=== PATIENT | male | born 1980 | race Caucasian/White ===

== ENCOUNTER 2021-11-04 17:25 | Emergency (ER) | payer MEDICAID, SELFPAY ==
--- NOTE | ~2021-11-04 | CT_ITS ---
EXAMINATION: CT ABDOMEN AND PELVIS WITHOUT CONTRAST CLINICAL INFORMATION: Severe left-sided flank pain. COMPARISON: None. TECHNIQUE: Multidetector volumetric imaging was performed from the superior aspect of the liver through the pubic symphysis. Sagittal and coronal reformatted images were obtained on the technologist's workstation. This CT examination was performed using dose optimization techniques as appropriate, variously including the following: *Automated exposure control *Adjustment of mA and/or kV according to patient size (this includes techniques or standardized protocols for targeted exams where dose is matched to indication/reason for exam; i.e. extremities or head) *Use of iterative reconstruction technique DLP: 514 mGy-cm FINDINGS: LUNG BASES: No focal consolidation or pleural effusion. Coronary calcifications. LIVER, GALLBLADDER, AND BILIARY TREE: The liver is normal in size, shape, and attenuation. No focal hepatic lesion or biliary ductal dilatation is present. The gallbladder is unremarkable with no evidence of radiopaque gallstones, gallbladder wall thickening, or obvious pericholecystic inflammatory changes. PANCREAS: Unremarkable. SPLEEN: Unremarkable. ADRENAL GLANDS: Unremarkable. KIDNEYS AND URETERS: There is moderate left hydroureteronephrosis with a 0.3 cm calculus in the left UVJ. No other renal calculi are identified. No right hydroureteronephrosis. No discrete focal parenchymal abnormalities, although evaluation of lesions is limited in the absence of intravenous contrast. There is asymmetric left-sided perinephric fat stranding and free fluid, more notable in the anterior pararenal space. BLADDER: Underdistended limiting assessment of wall thickening. GASTROINTESTINAL TRACT: Nonspecific hyperattenuating material layering in the stomach antrum (3:28). The stomach and the small bowel are nondilated. Normal appendix. Colonic diverticulosis without significant pericolonic inflammatory changes. No bowel obstruction. ABDOMINAL WALL: Small bilateral fat-containing inguinal hernias. LYMPH NODES: No lymphadenopathy by size criteria. VASCULAR: Atherosclerotic disease. The abdominal aorta is of normal caliber. PELVIC VISCERA: Unremarkable. OSSEOUS STRUCTURES: No acute or aggressive appearing osseous abnormalities. Mild thoracolumbar spondylosis. CT/CT abdomen pelvis wo con IMPRESSION: There is a 0.3 cm calculus in the left UVJ with moderate left hydronephrosis and asymmetric left perirenal fat stranding/free fluid. Colonic diverticulosis but no evidence of acute diverticulitis.
[2021-11-04 18:20] VITALS: BP 163/93; PULSE 62; RESP 18; TEMP 35.5; O2SAT 99; BMI 27.3
[2021-11-04] MEDS: Ondansetron ODT 4 MG TAB.RAPDIS TRANSLINGU (18:20)
[2021-11-04 19:03] LABS: Basophils Absolute Auto 0.1 X10*3/uL (0.0-0.2); Basophils Percent Auto 0.3 % (0-2); Hematocrit 43.8 % (42.0-52.0); Hemoglobin 14.6 g/dl (14.0-18.0); Imm Gran Pct Auto 0.5 % (0.0-0.4); Lymphocytes Absolute Auto 1.3 X10*3/uL (1.2-4.9); Lymphocytes Percent Auto 6.3 % (20-40); MANUAL DIFF FLAG SCAN; Mean Corpuscular HGB Conc 33.3 g/dl (31.0-36.0); Mean Corpuscular Hemoglobin 28.6 pg (27.0-33.0); Mean Corpuscular Volume 85.7 fL (80.0-98.0); Mean Platelet Volume 9.8 fL (9.4-12.4); Monocytes Absolute Auto 0.5 X10*3/uL (0.1-1.2); Monocytes Percent Auto 2.5 % (2-11); Neutrophils Absolute Auto 18.7 x10*3/uL (2.0-8.3); Neutrophils Percent Auto 90.4 % (45-73); Platelet Count 333 X10*3/uL (160-400); Red Blood Count 5.11 X10*6/uL (4.60-5.80); Red Cell Distribution Width 13.3 % (11.0-16.0); SCAN SMEAR FLAG 1; White Blood Count 20.7 X10*3/uL (4.8-10.8)
[2021-11-04 19:16] LABS: Anion Gap 14 (12-20); Blood Urea Nitrogen 7 mg/dL (9-16); Calcium 9.5 mg/dL (8.4-10.2); Carbon Dioxide 25 mmol/L (22-29); Chloride 103 mmol/L (96-108); Creatinine Clr Calc Pharmacy 84.8; Estimated Glomerular Filt Rate > 60; Glucose Random 150 mg/dL (60-115); Potassium 3.9 mmol/L (3.3-5.1); Sodium 138 mmol/L (135-145)
[2021-11-04 19:32] LABS: SLIDE REVIEW VERIFIED
[2021-11-04 21:42] LABS: Appearance Urine CLOUDY; Color Urine YELLOW; Glucose Urine UA NEG (NEG); Leukocyte Esterase Urine NEG (NEG); Nitrite Urine NEG (NEG); Specific Gravity - Urine >= 1.030 (1.005-1.025); UACC Culture Trigger NO; Urine Blood 2+ (NEG); Urine Ketones NEG (NEG); Urine Protein TRACE MG/DL (NEG-TRACE)
[2021-11-04 21:51] LABS: Bacteria Urine 1+ /LPF; WBC Urine 0 /HPF (0-4)
[2021-11-04 21:52] LABS: Amorphous Sediment Urine 1+ /LPF; RBC Urine 0-2 /HPF (0)
--- NOTE | 2021-11-04 22:41 | PC.NURSE ---
pt reports urinating at this time, having a lot of blood and then immediate pain relief. patient in no obvious distress, appears greatly improved. diaphoresis resolved
[2021-11-04 22:43] VITALS: BP 143/100; PULSE 86; RESP 18; O2SAT 98
[2021-11-04 23:41] VITALS: BP 138/90; PULSE 87; RESP 18; TEMP 37.4; O2SAT 96
[2021-11-05] VITALS: BP 146/91; PULSE 94; RESP 16; O2SAT 95
--- NOTE | 2021-11-05 00:02 | ED_ITS ---
HPI - Abdominal Pain General Chief Complaint: General Medical Stated Complaint: left lower back and abd pain Time Seen by Provider: 11/04/21 21:04 Source: patient Mode of arrival: ambulatory Limitations: no limitations History of Present Illness MD elicited complaint: abdominal pain Onset (ago): hour(s) (this afternoon) Pain Consistency: now resolved Location: L flank Severity: severe Quality: stabbing Radiation: LLQ Migration to: no migration Exacerbating factors: nothing Relieving factors: nothing Associated symptoms: nausea, vomiting, chills and hematuria Related Data Previous Rx's Medication Instructions Recorded levofloxacin 500 mg tablet 500 mg PO DAILY 6 Days #6 tab 11/05/21 Allergies Allergy/AdvReac Type Severity Reaction Status Date / Time Unable to Assess Allergy Unverified 11/04/21 21:05 Review of Systems Review of Systems Constitutional : No Weight loss, No Fever, No Chills ENT/Mouth : No sore throat, No Rhinorrhea Eyes: No Swelling, No Redness Cardiovascular : No Chest Pain, No SOB, NoEdema Respiratory : No Cough, No Sputum, No Wheezing Gastrointestinal : Positive Nausea, Positive Vomiting, no Diarrhea, positive abdominal Pain, No Hematochezia, No Melena Genitourinary : No Dysuria, pos Urinary Frequency, pos Hematuria, No Urgency Musculoskeletal : No joint pain, No Myalgias, No Joint Swelling Skin : No Skin Lesions, No rash Neuro : No Weakness, No Numbness, No Dizziness, No Headache Psych : No Anxiety/Panic, No Depression Heme/Lymph: No Bruising, No Lymphadenopathy Endocrine : No Polyuria, No Polydipsia All other systems reviewed and are negative. [facility] Past Medical History Attestation statement: The following information was validated with the patient. Medical History Angina at rest CAD (coronary artery disease) HTN (hypertension) Surgical History H/O heart artery stent Social History Social History (Updated 11/05/21 @ 00:03 by Sarina Friend DO) Patient Tobacco Use Status: Current everyday Tobacco user Physical Exam ED Vital Signs: Vital Signs - 24 hr 11/04/21 18:20 11/04/21 22:43 11/04/21 23:41 Temperature 96 F L 99.3 F Pulse Rate 62 86 87 Respiratory Rate 18 18 18 Blood Pressure 163/93 H 143/100 H 138/90 H Pulse Oximetry 99 98 96 11/05/21 00:00 Temperature Pulse Rate 94 Respiratory Rate 16 Blood Pressure 146/91 H Pulse Oximetry 95 BMI result Body Mass Index 27.3 Appearance: Alert. Oriented X3. No acute distress. I saw the patient after he already passed the stone so he looks amazing but reports from triage is that he was pale, diaphoretic and writhing in pain Eyes: Pupils equal, round and reactive to light. ENT: Pharynx normal. Neck: Normal inspection. Neck supple. CVS: Normal heart rate and rhythm. Pulses normal. Respiratory: No respiratory distress. Breath sounds normal. Abdomen: Soft and non-tender. Skin: Skin warm and dry. pale skin color - states it is his baseline. Extremities: No lower extremity edema. No calf ttp Neuro: Oriented X 3. No motor deficit. No sensory deficit. Course Course Course Narrative: WBC still fiordaliza likely reactive but given recent stone passage will start on levofloxacin - afebrile, no tachycardia MDM - Abdominal Pain MDM Narrative Medical decision making narrative: 41 yo male with hx of HTN, CAD s/p PCI with stent, presented with severe L sided flank pain radiating to his groin with hematuria. I saw him after he notes his pain resolved and he thinks he passed something in his urine. He had an elevated WBC of 20k but no UTI and CT scan showed L sided UVJ 3mm stone obstructing. On my interview he has no pain now and states he feels much better and is in 0/10 pain. I suspect he passed the stone. At this time will repeat CBC and see where he is at. Given perinephric stranding may benefit from some oral antibiotics at home Lab Data Result diagrams: 11/05/21 00:10 11/04/21 18:57 Labs: Lab Results 11/04/21 11/04/21 11/04/21 Range/Units 18:57 18:57 21:36 WBC 20.7 H (4.8-10.8) X10*3/uL RBC 5.11 (4.60-5.80) X10*6/uL Hgb 14.6 (14.0-18.0) g/dl Hct 43.8 (42.0-52.0) % MCV 85.7 (80.0-98.0) fL MCH 28.6 (27.0-33.0) pg MCHC 33.3 (31.0-36.0) g/dl RDW 13.3 (11.0-16.0) % Plt Count 333 (160-400) X10*3/uL MPV 9.8 (9.4-12.4) fL Immature Gran % (Auto) 0.5 H (0.0-0.4) % Neut % (Auto) 90.4 H (45-73) % Lymph % (Auto) 6.3 L (20-40) % [place] % (Auto) 2.5 (2-11) % Eos % (Auto) 0.0 (0-4) % Baso % (Auto) 0.3 (0-2) % Lymph # (Auto) 1.3 (1.2-4.9) X10*3/uL [place] # (Auto) 0.5 (0.1-1.2) X10*3/uL Eos # (Auto) 0.0 (0.0-0.4) X10*3/uL Baso # (Auto) 0.1 (0.0-0.2) X10*3/uL Abs Immat Gran (auto) 0.10 H (0.00-0.03) X10*3/uL Absolute Neuts (auto) 18.7 H (2.0-8.3) x10*3/uL Absolute Nucleated RBC 0.000 (0.0-0.012) X10*3/uL Nucleated RBC % (auto) 0.0 (0.0-0.2) /100WBC Smear Tech's Comments VERIFIED Sodium 138 (135-145) mmol/L Potassium 3.9 (3.3-5.1) mmol/L Chloride 103 (96-108) mmol/L Carbon Dioxide 25 (22-29) mmol/L Anion Gap 14 (12-20) BUN 7 L (9-16) mg/dL Creatinine 1.12 (0.5-1.4) mg/dL Estim Creat Clear Calc 84.8 Estimated GFR > 60 Random Glucose 150 H (60-115) mg/dL Calcium 9.5 (8.4-10.2) mg/dL Urine Color YELLOW Urine Appearance CLOUDY Urine pH 6.0 (5.0-8.0) Ur Specific [place] >= 1.030 H (1.005-1.025) Urine Protein TRACE (NEG-TRACE) MG/DL Urine Glucose (UA) NEG (NEG) MG/DL Urine Ketones NEG (NEG) MG/DL Urine Blood 2+ H (NEG) Urine Nitrite NEG (NEG) Ur Leukocyte Esterase NEG (NEG) Urine RBC 0-2 (0) /HPF Urine WBC 0 (0-4) /HPF Ur Squamous Epith Cells NONE /LPF Amorphous Sediment 1+ /LPF Urine Bacteria 1+ /LPF 11/05/21 Range/Units 00:10 WBC 19.0 H (4.8-10.8) X10*3/uL RBC 5.05 (4.60-5.80) X10*6/uL Hgb 14.5 (14.0-18.0) g/dl Hct 43.1 (42.0-52.0) % MCV 85.3 (80.0-98.0) fL MCH 28.7 (27.0-33.0) pg MCHC 33.6 (31.0-36.0) g/dl RDW 13.6 (11.0-16.0) % Plt Count 310 (160-400) X10*3/uL MPV 9.8 (9.4-12.4) fL Immature Gran % (Auto) 0.3 (0.0-0.4) % Neut % (Auto) 89.6 H (45-73) % Lymph % (Auto) 6.4 L (20-40) % [place] % (Auto) 3.5 (2-11) % Eos % (Auto) 0.0 (0-4) % Baso % (Auto) 0.2 (0-2) % Lymph # (Auto) 1.2 (1.2-4.9) X10*3/uL [place] # (Auto) 0.7 (0.1-1.2) X10*3/uL Eos # (Auto) 0.0 (0.0-0.4) X10*3/uL Baso # (Auto) 0.0 (0.0-0.2) X10*3/uL Abs Immat Gran (auto) 0.06 H (0.00-0.03) X10*3/uL Absolute Neuts (auto) 17.1 H (2.0-8.3) x10*3/uL Absolute Nucleated RBC 0.000 (0.0-0.012) X10*3/uL Nucleated RBC % (auto) 0.0 (0.0-0.2) /100WBC Smear Tech's Comments Sodium (135-145) mmol/L Potassium (3.3-5.1) mmol/L Chloride (96-108) mmol/L Carbon Dioxide (22-29) mmol/L Anion Gap (12-20) BUN (9-16) mg/dL Creatinine (0.5-1.4) mg/dL Estim Creat Clear Calc Estimated GFR Random Glucose (60-115) mg/dL Calcium (8.4-10.2) mg/dL Urine Color Urine Appearance Urine pH (5.0-8.0) Ur Specific [place] (1.005-1.025) Urine Protein (NEG-TRACE) MG/DL Urine Glucose (UA) (NEG) MG/DL Urine Ketones (NEG) MG/DL Urine Blood (NEG) Urine Nitrite (NEG) Ur Leukocyte Esterase (NEG) Urine RBC (0) /HPF Urine WBC (0-4) /HPF Ur Squamous Epith Cells /LPF Amorphous Sediment /LPF Urine Bacteria /LPF Discharge Plan Discharge Clinical Impression: Ureterolithiasis, Leukocytosis Patient Disposition: Home, Self-Care Instructions: Leukocytosis (ED), Ureteral Stones (ED) Additional Instructions: return to ED for any worsening symptoms or concerns the CT scan showed a stone 3mm right at the bladder junction if your pain returns this could mean the stone is still there. Please follow up with your doctor and recheck your kidney function in 2 days. Replace 2 of your pepsis with a bottle of water each day. Monitor yourself for fevers Prescriptions: New levofloxacin 500 mg tablet 500 mg PO DAILY 6 Days Qty: 6 0RF Referrals: Lui Ruiz MD [Physician] - 2 days (if pain returns - UROLOGIST) Stand Alone Forms: Work/School Release
[2021-11-05 00:18] LABS: Basophils Percent Auto 0.2 % (0-2); Hematocrit 43.1 % (42.0-52.0); Hemoglobin 14.5 g/dl (14.0-18.0); Imm Gran Abs Auto 0.06 X10*3/uL (0.00-0.03); Imm Gran Pct Auto 0.3 % (0.0-0.4); Lymphocytes Absolute Auto 1.2 X10*3/uL (1.2-4.9); Lymphocytes Percent Auto 6.4 % (20-40); MANUAL DIFF FLAG NO; Mean Corpuscular HGB Conc 33.6 g/dl (31.0-36.0); Mean Corpuscular Hemoglobin 28.7 pg (27.0-33.0); Mean Corpuscular Volume 85.3 fL (80.0-98.0); Mean Platelet Volume 9.8 fL (9.4-12.4); Monocytes Absolute Auto 0.7 X10*3/uL (0.1-1.2); Monocytes Percent Auto 3.5 % (2-11); Neutrophils Absolute Auto 17.1 x10*3/uL (2.0-8.3); Neutrophils Percent Auto 89.6 % (45-73); Platelet Count 310 X10*3/uL (160-400); Red Blood Count 5.05 X10*6/uL (4.60-5.80); Red Cell Distribution Width 13.6 % (11.0-16.0)
[2021-11-05] MEDS: levoFLOXacin 500 MG TABLET PO (00:29)
== END 2021-11-05 00:47 | disposition home or self-care (01) ==
LOC: HO.ED 11-05 00:45
PROVIDERS: Emergency Provider Emergency Medicine; PCP Internal Medicine
DX: N20.1 Calculus of ureter (principal); M54.50 Low back pain, unspecified; D72.829 Elevated white blood cell count, unspecified; R10.32 Left lower quadrant pain; Z79.899 Other long term (current) drug therapy
CPT/HCPCS: 36415; 74176; 80048; 81001; 85025; 99284

== ENCOUNTER 2024-12-18 07:21 | Inpatient (IN) | payer OTHER, SELFPAY ==
[2024-12-18 07:25] VITALS: BP 154/106; PULSE 64; O2SAT 94
[2024-12-18 07:40] VITALS: BP 151/86; PULSE 72; RESP 18; TEMP 36.9; O2SAT 99
[2024-12-18 07:47] VITALS: BMI 28.8
--- NOTE | 2024-12-18 07:53 | PC.NURSE ---
Patient aware of plan of care for labwork. Is calm and in NAD. Resting with no complaints at this time. Q15 min checks maintained for safety.
[2024-12-18 08:07] LABS: MANUAL DIFF FLAG NO
[2024-12-18 08:16] LABS: Appearance Urine Clear; Color Urine Yellow; Glucose Urine UA Negative (Negative); Leukocyte Esterase Urine Negative (Negative); Nitrite Urine Negative (Negative); UMIC TRIGGER UACC YES; Urine Blood Trace (Negative); Urine Ketones 15 mg/dL (Negative); Urine Protein Negative (Neg-Trace)
[2024-12-18 08:18] LABS: Basophils Absolute Auto 0.1 X10*3/uL (0.0-0.2); Basophils Percent Auto 0.6 % (0-2); Eosinophils Percent Auto 0.2 % (0-4); Hematocrit 40.9 % (42.0-52.0); Hemoglobin 14.3 g/dl (14.0-18.0); Imm Gran Abs Auto 0.07 X10*3/uL (0.00-0.03); Imm Gran Pct Auto 0.6 % (0.0-0.4); Lymphocytes Absolute Auto 1.8 X10*3/uL (1.2-4.9); Lymphocytes Percent Auto 15.1 % (20-40); Mean Corpuscular Hemoglobin 29.2 pg (27.0-33.0); Mean Corpuscular Volume 83.6 fL (80.0-98.0); Mean Platelet Volume 9.6 fL (9.4-12.4); Monocytes Absolute Auto 0.5 X10*3/uL (0.1-1.2); Neutrophils Absolute Auto 9.6 x10*3/uL (2.0-8.3); Neutrophils Percent Auto 79.5 % (45-73); Platelet Count 341 X10*3/uL (160-400); Red Blood Count 4.89 X10*6/uL (4.60-5.80); Red Cell Distribution Width 13.1 % (11.0-16.0); White Blood Count 12.1 X10*3/uL (4.8-10.8)
[2024-12-18 08:18] LABS: Bacteria Urine None Seen (None Seen); Hyaline Casts Urine 0-2 /LPF (0-2); Squamous Epithelial Cell Urine 0-2 /HPF (0-2); WBC Urine 0-5 /HPF (0-5)
[2024-12-18 08:28] LABS: Alanine Aminotransferase 17 U/L (0-40); Albumin Level 4.2 g/dL (3.5-5.0); Alkaline Phosphatase 142 U/L (39-117); Anion Gap 12 (12-20); Aspartate Amino Transferase 27 U/L (5-37); Bilirubin Total 0.4 mg/dL (0.0-1.0); Blood Urea Nitrogen 7 mg/dL (9-16); Carbon Dioxide 28 mmol/L (22-29); Chloride 102 mmol/L (96-108); Creatinine Clr Calc Pharmacy 115.4; Estimated Glomerular Filt Rate > 60; Ethanol < 10 mg/dL; Glucose Random 120 mg/dL (60-115); Potassium 3.4 mmol/L (3.3-5.1); Sodium 139 mmol/L (135-145); Total Protein 6.8 g/dL (6.5-8.0)
[2024-12-18 08:29] LABS: Amphetamine Screen Urine Not Detected (Not Detect); Barbiturates, Urine POSITIVE (Not Detect); Benzodiazepines Screen Urine Not Detected (Not Detect); Buprenorphine Scr Not Detected (Not Detect); Cannabinoid Screen Urine POSITIVE (Not Detect); Cocaine Screen Urine Not Detected (Not Detect); Fentanyl, urine Not Detected (Not Detect); Methadone Screen, Urine Not Detected (Not Detect); Opiate Screen Urine Not Detected (Not Detect); Oxycodone Screen Urine Not Detected (Not Detect); Phencyclidine Screen Urine Not Detected (Not Detect)
--- NOTE | 2024-12-18 08:40 | ED_ITS ---
HPI - Psych General Chief Complaint: Psychiatric Symptoms Stated Complaint: THINKS SOMEONE IS TRYING TO KILL HIM,COOP PER EMS Time Seen by Provider: 12/18/24 07:40 History of Present Illness ED Provider: Romie Mireles MD HPI Narrative: [age] male presents for behavioral health complaints. Patient also has hip pain. ____ [age] male who denies any significant formally diagnosed psychiatric history. 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 He also has a stent so he has CAD he is on aspirin statin and he tells me he thinks he is on Inderal. He does see a PCP no therapist or psychiatrist. Having progressive and worsening paranoid thoughts that people are coming to get him and kill him and ?assess and 8 me ?. Today he felt that he could ?make it quicker and just hang myself?. Denies any illicit drugs he is calm cooperative lives with his parents here in the community does not work actively at this time Related Data Home Medications ?Medication ?Instructions ?Recorded ?Confirmed aspirin 81 mg chewable tablet 1 tab PO DAILY 12/18/24 12/18/24 atorvastatin 80 mg tablet 80 mg PO DAILY 12/18/24 12/18/24 metoprolol succinate 25 mg 25 mg PO DAILY 12/18/24 12/18/24 tablet,extended release 24 hr Allergies Allergy/AdvReac Type Severity Reaction Status Date / Time No Known Allergies Allergy Verified 12/18/24 07:50 [facility] Past Medical History Medical History Angina at rest CAD (coronary artery disease) HTN (hypertension) Surgical History H/O heart artery stent Social History Social History (Updated 11/05/21 @ 00:03 by Teresa Friend DO) Household Members: Family Housing: House Do you presently have visiting nurse or other home services: No Alcohol intake: current Alcohol intake frequency: a few times a month Alcohol type: beer Patient Tobacco Use Status: Current someday Tobacco user Tobacco use type: Cigarette Cigarette Packs Per Day: 1 Cigarettes Per Day: 20.0 Years Smoked: 30 Smoked in Last 30 Days: Yes e-Cigarette/Vaping Use: Never Used Patient Interested in Nicotine Replacement: No Patient Given Instructions on How to Stop Smoking: No Second Hand Smoke Exposure: No Use of substances other than those prescribed or required for medical reasons: Yes Substance Use Type: Marijuana Substance Use Frequency: Occasionally Last Used Substance: Weeks (ago) Currently Displaying Signs/Symptoms of Drug Intoxication Withdrawal: No Any prior treatment program specific to substance use: No Have you been hit, kicked, punched, or otherwise hurt by someone within the past year? If so, by whom?: No Do you feel safe in your current relationship?: No Current Relationship Is there a partner from a previous relationship who is making you feel unsafe now?: No Are you made to feel afraid or neglected: No Advance Directives: No Advance Directives Information Provided: Yes Do you have thoughts of harming others: None Do you have a plan to hurt others: No Plan Recently lost weight without trying: No Nutrition Risks: No Nutritional Risk Poor oral hygiene: No Physical Exam 2 Vital Signs: Vital Signs: Last Vital Signs Temp 98.3 F 12/19/24 08:00 Pulse 90 12/19/24 08:40 Resp 16 12/19/24 08:00 BP 115/71 12/19/24 08:40 Pulse Ox 97 12/19/24 08:00 O2 Del Method Room Air 12/18/24 20:00 BMI result Body Mass Index 28.8 Const: Other: EXAM: Gen: Alert, awake, well appearing, well hydrated. Head: Atraumatic Eyes: Anicteric, Normal conjunctiva. ENT: Moist mucosa, no pallor. ? Neck: Supple. Respiratory: Breathing comfortably, No distress.Clear to auscultation bilaterally, symmetric chest expansion, No wheeze, rales, ronchi. Cardiovascular: Regular rate and rhythm. No murmurs or rub. Well perfused periphery, warm extremities. No edema. ? Abdominal: Soft, no objective distension. No palpable masses or obvious organomegaly. No focal tenderness, no guarding, no rebound tenderness or other peritoneal findings. : No flank tenderness. Neuro: Alert. Gross movement of all extremities intact. ? Vital signs: See flowsheet Psych: Poor dentition, well dressed clean and very cooperative. He does occasionally dark his eyes around and appears paranoid but he makes good eye contact. Positive SI with plan prior to arrival to hang himself. He is actively seeking help and cooperative with this. No auditory or visual hallucinations today or ever in the past. No formal psychiatric diagnosis or psychiatric hospitalization denies illicit drug use. Course Reevaluation(s) Reevaluation #1: 12/18/2024 DR. Ellington's Progress note: Patient will be admitted to voluntarily, will discontinue physician observation. Time: 18:26 Medications Administered Generic Name Dose Route Start Last Admin Trade Name Freq PRN Reason Stop Dose Admin Atorvastatin Calcium 80 mg 12/19/24 09:00 12/19/24 08:40 Atorvastatin Calcium 80 Mg Tablet PO 80 mg DAILY ALIRIO Administration Hydroxyzine HCl 25 mg 12/18/24 18:07 12/19/24 13:12 Hydroxyzine Hcl 25 Mg Tablet PO 25 mg Q6H PRN Administration mild anxiety Metoprolol Succinate 25 mg 12/19/24 09:00 12/19/24 08:40 Metoprolol Succinate Er 25 Mg Tab.Er.24h PO 25 mg DAILY ALIRIO Administration Protocol Olanzapine 5 mg 12/18/24 18:07 12/19/24 08:40 Olanzapine 5 Mg Tablet PO 5 mg TID PRN Administration agitation Trazodone HCl 50 mg 12/18/24 18:07 12/18/24 21:40 Trazodone Hcl 50 Mg Tablet PO 50 mg BEDTIME MRX1 PRN Administration Insomnia Medical Decision Making Lab Data 12/18/24 08:04 12/19/24 07:53 Labs: Lab Results 12/18/24 12/18/24 Range/Units 08:04 08:08 WBC 12.1 H (4.8-10.8) X10*3/uL RBC 4.89 (4.60-5.80) X10*6/uL Hgb 14.3 (14.0-18.0) g/dl Hct 40.9 L (42.0-52.0) % MCV 83.6 (80.0-98.0) fL MCH 29.2 (27.0-33.0) pg MCHC 35.0 (31.0-36.0) g/dl RDW 13.1 (11.0-16.0) % Plt Count 341 (160-400) X10*3/uL MPV 9.6 (9.4-12.4) fL Immature Gran % (Auto) 0.6 H (0.0-0.4) % Neut % (Auto) 79.5 H (45-73) % Lymph % (Auto) 15.1 L (20-40) % [place] % (Auto) 4.0 (2-11) % Eos % (Auto) 0.2 (0-4) % Baso % (Auto) 0.6 (0-2) % Lymph # (Auto) 1.8 (1.2-4.9) X10*3/uL [place] # (Auto) 0.5 (0.1-1.2) X10*3/uL Eos # (Auto) 0.0 (0.0-0.4) X10*3/uL Baso # (Auto) 0.1 (0.0-0.2) X10*3/uL Abs Immat Gran (auto) 0.07 H (0.00-0.03) X10*3/uL Absolute Neuts (auto) 9.6 H (2.0-8.3) x10*3/uL Absolute Nucleated RBC 0.000 (0.0-0.012) X10*3/uL Nucleated RBC % (auto) 0.0 (0.0-0.2) /100WBC Sodium 139 (135-145) mmol/L Potassium 3.4 (3.3-5.1) mmol/L Chloride 102 (96-108) mmol/L Carbon Dioxide 28 (22-29) mmol/L Anion Gap 12 (12-20) BUN 7 L (9-16) mg/dL Creatinine 0.74 (0.5-1.4) mg/dL Estim Creat Clear Calc 115.4 Estimated GFR > 60 Random Glucose 120 H (60-115) mg/dL Calcium 9.0 (8.4-10.2) mg/dL Total Bilirubin 0.4 (0.0-1.0) mg/dL AST 27 (5-37) U/L ALT 17 (0-40) U/L Alkaline Phosphatase 142 H (39-117) U/L Total Protein 6.8 (6.5-8.0) g/dL Albumin 4.2 (3.5-5.0) g/dL Urine Color Yellow Urine Appearance Clear Urine pH 7.0 (5.0-9.0) Ur Specific [place] 1.010 (1.005-1.025) Urine Protein Negative (Neg-Trace) mg/dL Urine Glucose (UA) Negative (Negative) mg/dL Urine Ketones 15 (Negative) mg/dL Urine Blood Trace H (Negative) Urine Nitrite Negative (Negative) Ur Leukocyte Esterase Negative (Negative) Urine RBC 3-5 H (0-2) /HPF Urine WBC 0-5 (0-5) /HPF Ur Squamous Epith Cells 0-2 (0-2) /HPF Urine Bacteria None Seen (None Seen) Hyaline Casts 0-2 (0-2) /LPF Urine Opiates Screen Not Detected (Not Detect) Ur Buprenorphine Scrn Not Detected (Not Detect) ng/mL Ur Oxycodone Screen Not Detected (Not Detect) ng/mL Urine Methadone Screen Not Detected (Not Detect) ng/mL Urine Fentanyl Screen Not Detected (Not Detect) Ur Barbiturates Screen POSITIVE H (Not Detect) Ur Phencyclidine Scrn Not Detected (Not Detect) Ur Amphetamines Screen Not Detected (Not Detect) U Benzodiazepines Scrn Not Detected (Not Detect) Urine Cocaine Screen Not Detected (Not Detect) U Marijuana (THC) Screen POSITIVE H (Not Detect) Ethyl Alcohol < 10 mg/dL Discharge Plan Discharge Clinical Impression: Acute psychosis Patient Disposition: Admitted As Inpatient Interventions: Admission Worksheet (ED) Last Done: 12/18/24 19:06 Discharge Date/Time: 12/18/24 19:37
--- NOTE | 2024-12-18 10:25 | PC.NURSE ---
Patient requesting to leave- Care team eval not yet complete- care team aware- Dr West notified as well. Pt in NAD calm and cooperative.
--- NOTE | 2024-12-18 10:36 | PC.NURSE ---
Pt conversing with other patient in the pod do you have a blade, because if you have a blade why don't you just do me in right now . Pt self-redirected back to chair in front of nurses station
--- NOTE | 2024-12-18 11:28 | PC.NURSE ---
pt making statements such as You know I won't make it if I go out those doors right I won't be making it much longer in life
--- NOTE | 2024-12-18 14:12 | MHC.CARE ---
patient assessed by CARE team, meets [facility], at time of writing he is accepting of this disposition.
[2024-12-18 16:13] VITALS: BP 134/88; PULSE 85; RESP 16; TEMP 36.9; O2SAT 99
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
--- NOTE | 2024-12-18 19:37 | PC.ADMIT ---
Blaine arrived on M5 from [facility] ED Pod. He is alert and oriented x3, I thought I was here for a tic bite I got last week that is making me sick He was cooperative with skin/safety check and skin check is only remarkable for circular red scabbed area below right pectoral area. that is where the tic bit me . He signed a CV in the ED and currently denies SI/HI or any visual or perceptual disturbances. He wanted to attend art group you mean I'll have things to do? so this nurse brought him to the OT room.
[2024-12-18 19:44] VITALS: BMI 28.9
[2024-12-18 20:00] VITALS: BP 134/98; PULSE 84; TEMP 36.9; O2SAT 99
[2024-12-18] MEDS: traZODone HCL 50 MG TABLET PO (21:40)
[2024-12-18] MEDS: hydrOXYzine HCL 25 MG TABLET PO (21:40)
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
[2024-12-19 08:00] VITALS: BP 115/71; PULSE 90; RESP 16; TEMP 36.8; O2SAT 97
[2024-12-19 08:36] LABS: Alanine Aminotransferase 20 U/L (0-40); Albumin Level 4.6 g/dL (3.5-5.0); Alkaline Phosphatase 153 U/L (39-117); Anion Gap 12 (12-20); Aspartate Amino Transferase 30 U/L (5-37); Bilirubin Total 0.2 mg/dL (0.0-1.0); Blood Urea Nitrogen 18 mg/dL (9-16); Calcium 9.6 mg/dL (8.4-10.2); Carbon Dioxide 25 mmol/L (22-29); Chloride 107 mmol/L (96-108); Cholesterol 108 mg/dL (<200); Creatinine Clr Calc Pharmacy 104.4; Estimated Glomerular Filt Rate > 60; Glucose Random 116 mg/dL (60-115); HDL Cholesterol 33 mg/dL (>40); LDL Cholesterol Calculated 50 mg/dL (<100); Potassium 3.4 mmol/L (3.3-5.1); Sodium 141 mmol/L (135-145); Total Protein 7.3 g/dL (6.5-8.0); Triglycerides 128 mg/dL (<150)
[2024-12-19 08:40] VITALS: BP 115/71; PULSE 90
[2024-12-19] MEDS: Atorvastatin Calcium 80 MG TABLET PO (08:40)
[2024-12-19] MEDS: hydrOXYzine HCL 25 MG TABLET PO ×3 (08:40→20:06)
[2024-12-19] MEDS: Metoprolol Succinate ER 25 MG TAB.ER.24H PO (08:40)
[2024-12-19] MEDS: OLANZapine 5 MG TABLET PO ×2 (08:40→20:06)
[2024-12-19 08:44] LABS: Estimated Average Glucose 114 mg/dL; Hemoglobin A1C 147.5422 umol/L; Hemoglobin A1c % 5.6 % (<6.0); Total Hemoglobin (HGBA1C) 3921.0076 umol/L
[2024-12-19 08:53] LABS: TSH reflex Free T4 1.51 uIU/mL (0.32-4.0)
--- NOTE | 2024-12-19 11:11 | HO.PSYADMNOT ---
HPI Date of Service: 12/19/24 Chief Complaint: SI;Psychosis Sources of Information: patient interviewed, chart reviewed and crisis/core team assessment reviewed Additional Sources of Information: Seen 130pm Talked with mom and Jahaira Dozier [employer]- current intense sx for a few weeks, probably triggered by parents health crisis and need to be hospitalized a few weeks ago. Pt was worried he would lose them as they spent 4 days in hospital. They have always been there for pt and he needed to stay alone with great worry and concern. Hx of social anxiety since cardiac stenting-unable to go out, stays at home, non violvent, nice person, isolates in his room, not social HPI Subjective Notes: [place] Warning and Conditional Voluntary Healthcare Proxy: No Guardianship: No Medical Problems Affecting Mental Status: No Narrative: 44 yo male, to ER via ambulance with sx of increasing paranoia and fear that he will be shot and killed in the community. Pt telling family for the past few weeks that he is going to and threatened to hang himself at home. Pt met with tw in the kitchen. He refused to meet in the conference room as- we are near the roof and I am afraid of windows- we may be assassinated. Reports that sx just kicked in and he put himself on lock down. Reports being afraid and references several conspiracy theories. Fears being on the unit as it feels like nursing home, fears he will get shanked, hit with a razor, or harmed, my brain can really twist things . Calls himself a narcissist, with a superman complex who fears everything. 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 Surgical History H/O heart artery stent Narrative: Stented a 90% occluded artery Family History: sister-bipolar Social History: Lives with parents in [place] for the past 6 years 5 siblings- all close No relationship, no kids No work in 6 years Substance History: cannabis-smoking, gummies; alcohol in his 20's, nicotine Trauma History: Parents recent hospitalization, Brother Dereck in 2019 had a frontal lobe tumor-several CVA's post op Diagnostics Vital Signs (24Hr): Vital Signs - 24 hr 12/18/24 16:13 12/18/24 20:00 12/19/24 08:40 Temperature 98.5 F 98.5 F Pulse Rate 85 84 90 Respiratory Rate 16 Blood Pressure 134/88 134/98 H 115/71 Pulse Oximetry 99 99 Oxygen Delivery Method Room Air Room Air BMI result Body Mass Index 28.9 Labs 12/18/24 08:04 12/19/24 07:53 Labs: Laboratory Results - last 48 hr 12/18/24 12/18/24 12/19/24 08:04 08:08 07:53 WBC 12.1 H RBC 4.89 Hgb 14.3 Hct 40.9 L MCV 83.6 MCH 29.2 MCHC 35.0 RDW 13.1 Plt Count 341 MPV 9.6 Immature Gran % (Auto) 0.6 H Neut % (Auto) 79.5 H Lymph % (Auto) 15.1 L Hood % (Auto) 4.0 Eos % (Auto) 0.2 Baso % (Auto) 0.6 Lymph # (Auto) 1.8 Hood # (Auto) 0.5 Eos # (Auto) 0.0 Baso # (Auto) 0.1 Abs Immat Gran (auto) 0.07 H Absolute Neuts (auto) 9.6 H Absolute Nucleated RBC 0.000 Nucleated RBC % (auto) 0.0 Sodium 139 141 Potassium 3.4 3.4 Chloride 102 107 Carbon Dioxide 28 25 Anion Gap 12 12 BUN 7 L 18 H Creatinine 0.74 0.82 Estim Creat Clear Calc 115.4 104.4 Estimated GFR > 60 > 60 Random Glucose 120 H 116 H Estimat Average Glucose 114 Hemoglobin A1c % 5.6 Calcium 9.0 9.6 D Total Bilirubin 0.4 0.2 AST 27 30 ALT 17 20 Alkaline Phosphatase 142 H 153 H Total Protein 6.8 7.3 Albumin 4.2 4.6 Triglycerides 128 Cholesterol 108 LDL Cholesterol, Calc 50 HDL Cholesterol 33 L TSH 1.51 Urine Color Yellow Urine Appearance Clear Urine pH 7.0 Ur Specific [place] 1.010 Urine Protein Negative Urine Glucose (UA) Negative Urine Ketones 15 Urine Blood Trace H Urine Nitrite Negative Ur Leukocyte Esterase Negative Urine RBC 3-5 H Urine WBC 0-5 Ur Squamous Epith Cells 0-2 Urine Bacteria None Seen Hyaline Casts 0-2 Urine Opiates Screen Not Detected Ur Buprenorphine Scrn Not Detected Ur Oxycodone Screen Not Detected Urine Methadone Screen Not Detected Urine Fentanyl Screen Not Detected Ur Barbiturates Screen POSITIVE H Ur Phencyclidine Scrn Not Detected Ur Amphetamines Screen Not Detected U Benzodiazepines Scrn Not Detected Urine Cocaine Screen Not Detected U Marijuana (THC) Screen POSITIVE H Ethyl Alcohol < 10 Meds/Allergies Meds Home Medications ?Medication ?Instructions ?Recorded ?Confirmed ?Type aspirin 81 mg chewable tablet 1 tab PO DAILY 12/18/24 12/18/24 History atorvastatin 80 mg tablet 80 mg PO DAILY 12/18/24 12/18/24 History metoprolol succinate 25 mg 25 mg PO DAILY 12/18/24 12/18/24 History tablet,extended release 24 hr Allergies Allergies Allergy/AdvReac Type Severity Reaction Status Date / Time No Known Allergies Allergy Verified 12/18/24 07:50 Mental Status Exam Mental Status Exam Patient Appearance: Fatigued Patient Orientation: Person, Place, Time and Situation Level of Consciousness: Alert Patient Behavior: Appropriate, Talkative, Cooperative, Suspicious, Distractible and Good Eye Contact Mood Description: Anxious and Apprehensive Affect Description: Anxious and Apprehensive Patient Cognition Impaired: No Ability to Follow Directions: Good Speech Pattern: Spontaneous Speech Memory Description: Intact and Episodic Impaired Hallucinations: None Delusions: Paranoid Ideation and Present Perceptual Disturbances: Depersonalization and Derealization Thought Process: Distracted and Rumination Thought Content: positive for [place] Depressive Symptoms: Increased Anxiety, Insomnia, Difficulty Sleeping and Thoughts of /Suicide Abnormal Motor Activity Signs and Symptoms: Restlessness Judgement: Fair Assessment & Plan Assessment & Plan (1) Acute psychosis: Status: Acute Code(s): F23 - Brief psychotic disorder (2) PTSD (post-traumatic stress disorder): Status: Acute Code(s): F43.10 - Post-traumatic stress disorder, unspecified Plan Admit, CV, 15 minute checks, TDN filed. Collateral Contact Diagnostics as needed Encourage full milieu Pt is willing to take medications. Olanzapine 5 mg bid to begin. Patient educated on: medication risk/benefits and therapeutic strategies Reason for continued inpatient stay Substantial Risk for: rapid decompensation Statement Statement: I have reviewed the history and physical and performed a pertinent examination on my patient. No changes have occurred unless specified. If the History and Physical was not performed prior to admission, the Hospitalist's service will be consulted for completing the admission physical. Time Spent With Patient Time: Total time managing care of this patient today ____ minutes.
[2024-12-19 19:43] VITALS: BP 143/85; PULSE 82; TEMP 37; O2SAT 96
[2024-12-19] MEDS: traZODone HCL 50 MG TABLET PO (20:06)
[2024-12-20] MEDS: OLANZapine 5 MG TABLET PO ×4 (04:49→20:52)
[2024-12-20 08:00] VITALS: BP 154/93; PULSE 69; RESP 18; TEMP 36.2; O2SAT 96
[2024-12-20] MEDS: Atorvastatin Calcium 80 MG TABLET PO (08:29)
[2024-12-20] MEDS: Metoprolol Succinate ER 25 MG TAB.ER.24H PO (08:29)
--- NOTE | 2024-12-20 09:51 | P.PNPSI_ITS ---
Subjective Subjective Date of Service: 12/20/24 Reason For Visit: SI;Psychosis Subjective Notes: Conditional Voluntary and 3 Day (retracted) Healthcare Proxy: No Guardianship: No Medical Problems Affecting Mental Status: No Interim History: Less fearful today. Discussed trying to figure out reality vs unreality. Feels lost, in purgatory, believes she has lived life in an incorrect way. No wanting to . Describes social anxiety, anger, feeling scared of his past. Finds olanzapine helpful and would like to continue Review of Systems Review of Systems Yes all other systems are reviewed and are negative Mental Status Exam Mental Status Exam Patient Appearance: Appropriate Patient Orientation: Person, Place, Time and Situation Level of Consciousness: Alert Patient Behavior: Appropriate, Talkative, Cooperative, Suspicious, Distractible and Good Eye Contact Mood Description: Apprehensive Affect Description: Apprehensive Patient Cognition Impaired: No Ability to Follow Directions: Good Speech Pattern: Spontaneous Speech Memory Description: Intact and Episodic Impaired Hallucinations: None Delusions: Paranoid Ideation and Present Perceptual Disturbances: Depersonalization and Derealization Thought Process: Distracted and Rumination Thought Content: positive for [place] and positive for Circumstantial Depressive Symptoms: Increased Anxiety, Insomnia, Difficulty Sleeping and Thoughts of /Suicide Abnormal Motor Activity Signs and Symptoms: Restlessness Judgement: Fair Diagnostics Vital Signs (24Hr): Vital Signs - 24 hr 12/19/24 19:43 12/20/24 08:00 Temperature 98.6 F 97.1 F Pulse Rate 82 69 Respiratory Rate 18 Blood Pressure 143/85 H 154/93 H Pulse Oximetry 96 96 Oxygen Delivery Method Room Air Room Air BMI result Body Mass Index 28.9 Labs 12/18/24 08:04 12/19/24 07:53 Labs: Laboratory Results - last 48 hr 12/19/24 07:53 Sodium 141 Potassium 3.4 Chloride 107 Carbon Dioxide 25 Anion Gap 12 BUN 18 H Creatinine 0.82 Estim Creat Clear Calc 104.4 Estimated GFR > 60 Random Glucose 116 H Estimat Average Glucose 114 Hemoglobin A1c % 5.6 Calcium 9.6 D Total Bilirubin 0.2 AST 30 ALT 20 Alkaline Phosphatase 153 H Total Protein 7.3 Albumin 4.6 Triglycerides 128 Cholesterol 108 LDL Cholesterol, Calc 50 HDL Cholesterol 33 L TSH 1.51 EKG EKG Comment: WNL 12/20/24 Medications Medications Current Medications Acetaminophen (Acetaminophen 325 Mg Tablet) 650 mg PO Q6H PRN PRN Reason: Headache/Pain, Scale 1-10 Al Hydroxide/Mg Hydroxide (Magnesium Hydrox/Alum Hydrox 30 Ml Oral.Susp) 30 ml PO Q6H PRN PRN Reason: Heartburn/Nausea Atorvastatin Calcium (Atorvastatin Calcium 80 Mg Tablet) 80 mg PO DAILY [facility] Last Admin: 12/20/24 08:29 Dose: 80 mg Hydroxyzine HCl (Hydroxyzine Hcl 25 Mg Tablet) 25 mg PO Q6H PRN PRN Reason: mild anxiety Last Admin: 12/19/24 20:06 Dose: 25 mg Magnesium Hydroxide (Milk Of Magnesia 30 Ml Oral.Susp) 30 ml PO DAILY PRN PRN Reason: Constipation Metoprolol Succinate (Metoprolol Succinate Er 25 Mg Tab.Er.24h) 25 mg PO DAILY [facility]; Protocol Last Admin: 12/20/24 08:29 Dose: 25 mg Nicotine (Nicotine 21 Mg Patch.Td24) 21 mg TRANSDERMA DAILY PRN PRN Reason: smoking cessation Nicotine Polacrilex (Nicotine Polacrilex 2 Mg Gum) 4 mg BUCCAL Q2H PRN PRN Reason: Nicotine Cravings Olanzapine (Olanzapine 5 Mg Tablet) 5 mg PO TID PRN PRN Reason: agitation Last Admin: 12/20/24 04:49 Dose: 5 mg Olanzapine (Olanzapine 5 Mg Tablet) 5 mg PO BID [facility] Last Admin: 12/20/24 08:29 Dose: 5 mg Trazodone HCl (Trazodone Hcl 50 Mg Tablet) 50 mg PO BEDTIME MRX1 PRN PRN Reason: Insomnia Last Admin: 12/19/24 20:06 Dose: 50 mg Allergies Allergies Allergy/AdvReac Type Severity Reaction Status Date / Time No Known Allergies Allergy Verified 12/18/24 07:50 Assessment & Plan Assessment & Plan (1) Acute psychosis: Status: Acute Code(s): F23 - Brief psychotic disorder (2) PTSD (post-traumatic stress disorder): Status: Acute Code(s): F43.10 - Post-traumatic stress disorder, unspecified Plan Admit, CV, 15 minute checks, TDN filed. Collateral Contact Diagnostics as needed Encourage full milieu Pt is willing to take medications. Olanzapine 5 mg bid to begin. 12/20: Less frightened, retracted TDN. Continue regime Reason for continued inpatient stay Substantial Risk for: rapid decompensation Time Spent With Patient Time: Total time managing care of this patient today ____ minutes.
[2024-12-20 20:00] VITALS: BP 140/73; PULSE 83; TEMP 37.2; O2SAT 96
[2024-12-21 07:55] VITALS: BP 157/101; PULSE 87; RESP 18; TEMP 36.4; O2SAT 99
[2024-12-21 08:25] VITALS: BP 140/93
[2024-12-21] MEDS: Metoprolol Succinate ER 25 MG TAB.ER.24H PO (08:25)
[2024-12-21] MEDS: OLANZapine 5 MG TABLET PO ×4 (08:26→23:00)
[2024-12-21] MEDS: Atorvastatin Calcium 80 MG TABLET PO (08:26)
[2024-12-21 08:30] VITALS: BP 140/93
[2024-12-21] MEDS: Nicotine Polacrilex 2 MG GUM 4 MG BUCCAL ×2 (13:13→20:52)
--- NOTE | 2024-12-21 15:37 | P.PNPSI_ITS ---
Subjective Subjective Date of Service: 12/21/24 Reason For Visit: SI;Psychosis Interim History: Active on unit, social with peers. patient reports feeling good today; denies any issues at this time. showered. denies SI/HI/VH/AH. denies any side effects from medications. continue current tx plan. Medication Compliance: Yes Side effects from medications: No Attending Groups: Yes Mental Status Exam Mental Status Exam Patient Appearance: Well Grooomed Patient Orientation: Person, Place, Time and Situation Level of Consciousness: Awake and Alert Patient Behavior: Appropriate and Cooperative Mood Description: Calm Affect Description: Calm Ability to Follow Directions: Good Speech Pattern: Clear and Appropriate Memory Description: Intact Hallucinations: None Delusions: Not Present Thought Process: Intact Thought Content: positive for Intact Diagnostics Vital Signs (24Hr): Vital Signs - 24 hr 12/20/24 20:00 12/21/24 07:55 12/21/24 08:25 Temperature 98.9 F 97.5 F Pulse Rate 83 87 Respiratory Rate 18 Blood Pressure 140/73 H 157/101 H 140/93 H Pulse Oximetry 96 99 Oxygen Delivery Method Room Air Room Air 12/21/24 08:30 Temperature Pulse Rate Respiratory Rate Blood Pressure 140/93 H Pulse Oximetry Oxygen Delivery Method BMI result Body Mass Index 28.9 Labs 12/18/24 08:04 12/19/24 07:53 Medications Medications Current Medications Acetaminophen (Acetaminophen 325 Mg Tablet) 650 mg PO Q6H PRN PRN Reason: Headache/Pain, Scale 1-10 Al Hydroxide/Mg Hydroxide (Magnesium Hydrox/Alum Hydrox 30 Ml Oral.Susp) 30 ml PO Q6H PRN PRN Reason: Heartburn/Nausea Atorvastatin Calcium (Atorvastatin Calcium 80 Mg Tablet) 80 mg PO DAILY [facility] Last Admin: 12/21/24 08:26 Dose: 80 mg Hydroxyzine HCl (Hydroxyzine Hcl 25 Mg Tablet) 25 mg PO Q6H PRN PRN Reason: mild anxiety Last Admin: 12/19/24 20:06 Dose: 25 mg Magnesium Hydroxide (Milk Of Magnesia 30 Ml Oral.Susp) 30 ml PO DAILY PRN PRN Reason: Constipation Metoprolol Succinate (Metoprolol Succinate Er 25 Mg Tab.Er.24h) 25 mg PO DAILY [facility]; Protocol Last Admin: 12/21/24 08:25 Dose: 25 mg Nicotine (Nicotine 21 Mg Patch.Td24) 21 mg TRANSDERMA DAILY PRN PRN Reason: smoking cessation Nicotine Polacrilex (Nicotine Polacrilex 2 Mg Gum) 4 mg BUCCAL Q2H PRN PRN Reason: Nicotine Cravings Last Admin: 12/21/24 13:13 Dose: 4 mg Olanzapine (Olanzapine 5 Mg Tablet) 5 mg PO TID PRN PRN Reason: agitation Last Admin: 12/21/24 10:51 Dose: 5 mg Olanzapine (Olanzapine 5 Mg Tablet) 5 mg PO BID [facility] Last Admin: 12/21/24 08:26 Dose: 5 mg Trazodone HCl (Trazodone Hcl 50 Mg Tablet) 50 mg PO BEDTIME MRX1 PRN PRN Reason: Insomnia Last Admin: 12/19/24 20:06 Dose: 50 mg Allergies Allergies Allergy/AdvReac Type Severity Reaction Status Date / Time No Known Allergies Allergy Verified 12/18/24 07:50 Assessment & Plan Assessment & Plan (1) Acute psychosis: Status: Acute Code(s): F23 - Brief psychotic disorder (2) PTSD (post-traumatic stress disorder): Status: Acute Code(s): F43.10 - Post-traumatic stress disorder, unspecified Plan Admit, CV, 15 minute checks, TDN filed. Collateral Contact Diagnostics as needed Encourage full milieu Pt is willing to take medications. Olanzapine 5 mg bid to begin. 12/20: Less frightened, retracted TDN. Continue regime 12/21: Active on unit, social with peers. patient reports feeling good today; denies any issues at this time. showered. denies SI/HI/VH/AH. denies any side effects from medications. continue current tx plan. Patient educated on: diagnosis, medication risk/benefits and therapeutic strategies Reason for continued inpatient stay Substantial Risk for: med/psych decompensation Time Spent With Patient Time: Total time managing care of this patient today _20___ minutes.
[2024-12-21 19:59] VITALS: BP 141/79; PULSE 99; TEMP 36.9; O2SAT 97
[2024-12-21] MEDS: Acetaminophen 325 MG TABLET 650 MG PO (23:07)
[2024-12-22] MEDS: traZODone HCL 50 MG TABLET PO ×2 (03:18→20:13)
[2024-12-22] MEDS: OLANZapine 5 MG TABLET PO ×5 (03:19→20:13)
[2024-12-22 08:00] VITALS: BP 146/71; PULSE 141; RESP 18; TEMP 35.9; O2SAT 96
[2024-12-22 08:47] VITALS: BP 146/71; PULSE 120
[2024-12-22] MEDS: Metoprolol Succinate ER 25 MG TAB.ER.24H PO (08:47)
[2024-12-22] MEDS: Atorvastatin Calcium 80 MG TABLET PO (08:48)
--- NOTE | 2024-12-22 15:12 | HO.PSYCHPN ---
Subjective Subjective Date of Service: 12/22/24 Reason For Visit: SI;Psychosis Interim History: Active on unit, social with peers. patient reports feeling good today; pt stated, I feel like the zyprexa is helpful . denies SI/HI/VH/AH. continue current tx plan. Medication Compliance: Yes Side effects from medications: No Attending Groups: Yes Mental Status Exam Mental Status Exam Patient Appearance: Well Grooomed Patient Orientation: Person, Place, Time and Situation Level of Consciousness: Awake and Alert Patient Behavior: Appropriate and Cooperative Mood Description: Calm Affect Description: Calm Patient Cognition Impaired: No Ability to Follow Directions: Good Speech Pattern: Clear and Appropriate Memory Description: Intact Hallucinations: None Delusions: Not Present Thought Process: Intact Thought Content: positive for Intact Diagnostics Vital Signs (24Hr): Vital Signs - 24 hr 12/21/24 19:59 12/22/24 08:00 12/22/24 08:47 Temperature 98.5 F 96.7 F L Pulse Rate 99 141 H 120 H Respiratory Rate 18 Blood Pressure 141/79 H 146/71 H 146/71 H Pulse Oximetry 97 96 Oxygen Delivery Method Room Air Room Air BMI result Body Mass Index 28.9 Labs 12/18/24 08:04 12/19/24 07:53 Medications Medications Current Medications Acetaminophen (Acetaminophen 325 Mg Tablet) 650 mg PO Q6H PRN PRN Reason: Headache/Pain, Scale 1-10 Last Admin: 12/21/24 23:07 Dose: 650 mg Al Hydroxide/Mg Hydroxide (Magnesium Hydrox/Alum Hydrox 30 Ml Oral.Susp) 30 ml PO Q6H PRN PRN Reason: Heartburn/Nausea Atorvastatin Calcium (Atorvastatin Calcium 80 Mg Tablet) 80 mg PO DAILY [facility] Last Admin: 12/22/24 08:48 Dose: 80 mg Hydroxyzine HCl (Hydroxyzine Hcl 25 Mg Tablet) 25 mg PO Q6H PRN PRN Reason: mild anxiety Last Admin: 12/19/24 20:06 Dose: 25 mg Magnesium Hydroxide (Milk Of Magnesia 30 Ml Oral.Susp) 30 ml PO DAILY PRN PRN Reason: Constipation Metoprolol Succinate (Metoprolol Succinate Er 25 Mg Tab.Er.24h) 25 mg PO DAILY [facility]; Protocol Last Admin: 12/22/24 08:47 Dose: 25 mg Nicotine (Nicotine 21 Mg Patch.Td24) 21 mg TRANSDERMA DAILY PRN PRN Reason: smoking cessation Nicotine Polacrilex (Nicotine Polacrilex 2 Mg Gum) 4 mg BUCCAL Q2H PRN PRN Reason: Nicotine Cravings Last Admin: 12/21/24 20:52 Dose: 4 mg Olanzapine (Olanzapine 5 Mg Tablet) 5 mg PO TID PRN PRN Reason: agitation Last Admin: 12/22/24 14:34 Dose: 5 mg Olanzapine (Olanzapine 5 Mg Tablet) 5 mg PO BID [facility] Last Admin: 12/22/24 08:47 Dose: 5 mg Trazodone HCl (Trazodone Hcl 50 Mg Tablet) 50 mg PO BEDTIME MRX1 PRN PRN Reason: Insomnia Last Admin: 12/22/24 03:18 Dose: 50 mg Allergies Allergies Allergy/AdvReac Type Severity Reaction Status Date / Time No Known Allergies Allergy Verified 12/18/24 07:50 Assessment & Plan Assessment & Plan (1) Acute psychosis: Status: Acute Code(s): F23 - Brief psychotic disorder (2) PTSD (post-traumatic stress disorder): Status: Acute Code(s): F43.10 - Post-traumatic stress disorder, unspecified Plan Admit, CV, 15 minute checks, TDN filed. Collateral Contact Diagnostics as needed Encourage full milieu Pt is willing to take medications. Olanzapine 5 mg bid to begin. 12/20: Less frightened, retracted TDN. Continue regime 12/21: Active on unit, social with peers. patient reports feeling good today; denies any issues at this time. showered. denies SI/HI/VH/AH. denies any side effects from medications. continue current tx plan. 12/22: continue current tx plan. Patient educated on: diagnosis, medication risk/benefits and therapeutic strategies Reason for continued inpatient stay Substantial Risk for: med/psych decompensation Time Spent With Patient Time: Total time managing care of this patient today _20___ minutes.
[2024-12-22 19:44] VITALS: BP 134/82; PULSE 89; TEMP 36.9; O2SAT 99
[2024-12-23 08:18] VITALS: BP 145/91; PULSE 121; RESP 16; TEMP 36.4; O2SAT 98
[2024-12-23] MEDS: Metoprolol Succinate ER 25 MG TAB.ER.24H PO (08:26)
[2024-12-23] MEDS: Atorvastatin Calcium 80 MG TABLET PO (08:26)
[2024-12-23] MEDS: OLANZapine 5 MG TABLET PO ×3 (08:26→16:25)
--- NOTE | 2024-12-23 16:19 | HO.PSYCHPN ---
Subjective Subjective Date of Service: 12/23/24 Reason For Visit: SI;Psychosis Interim History: patient reports feeling increased anxiety and intrusive thoughts today; pt stated, I'm over thinking that someone is going to stab me with throwing knifes . denies SI/HI/VH/AH. discussed increasing Zyprexa dose; pt agreed. Zyprexa increased to 5mg PO daily and 10mg PO bedtime. Medication Compliance: Yes Side effects from medications: No Attending Groups: Yes Mental Status Exam Mental Status Exam Patient Appearance: Well Grooomed Patient Orientation: Person, Place, Time and Situation Level of Consciousness: Awake and Alert Patient Behavior: Appropriate and Cooperative Mood Description: Anxious Affect Description: Anxious Patient Cognition Impaired: No Ability to Follow Directions: Good Speech Pattern: Clear and Appropriate Memory Description: Intact Hallucinations: None Delusions: Paranoid Ideation Thought Process: Intact Thought Content: positive for Intact Diagnostics Vital Signs (24Hr): Vital Signs - 24 hr 12/22/24 19:44 12/23/24 08:18 Temperature 98.4 F 97.5 F Pulse Rate 89 121 H Respiratory Rate 16 Blood Pressure 134/82 145/91 H Pulse Oximetry 99 98 Oxygen Delivery Method Room Air Room Air BMI result Body Mass Index 28.9 Labs 12/18/24 08:04 12/19/24 07:53 Medications Medications Current Medications Acetaminophen (Acetaminophen 325 Mg Tablet) 650 mg PO Q6H PRN PRN Reason: Headache/Pain, Scale 1-10 Last Admin: 12/21/24 23:07 Dose: 650 mg Al Hydroxide/Mg Hydroxide (Magnesium Hydrox/Alum Hydrox 30 Ml Oral.Susp) 30 ml PO Q6H PRN PRN Reason: Heartburn/Nausea Atorvastatin Calcium (Atorvastatin Calcium 80 Mg Tablet) 80 mg PO DAILY [facility] Last Admin: 12/23/24 08:26 Dose: 80 mg Hydroxyzine HCl (Hydroxyzine Hcl 25 Mg Tablet) 25 mg PO Q6H PRN PRN Reason: mild anxiety Last Admin: 12/19/24 20:06 Dose: 25 mg Magnesium Hydroxide (Milk Of Magnesia 30 Ml Oral.Susp) 30 ml PO DAILY PRN PRN Reason: Constipation Metoprolol Succinate (Metoprolol Succinate Er 25 Mg Tab.Er.24h) 25 mg PO DAILY [facility]; Protocol Last Admin: 12/23/24 08:26 Dose: 25 mg Nicotine (Nicotine 21 Mg Patch.Td24) 21 mg TRANSDERMA DAILY PRN PRN Reason: smoking cessation Nicotine Polacrilex (Nicotine Polacrilex 2 Mg Gum) 4 mg BUCCAL Q2H PRN PRN Reason: Nicotine Cravings Last Admin: 12/21/24 20:52 Dose: 4 mg Olanzapine (Olanzapine 5 Mg Tablet) 5 mg PO TID PRN PRN Reason: agitation Last Admin: 12/23/24 10:31 Dose: 5 mg Olanzapine (Olanzapine 5 Mg Tablet) 5 mg PO BID [facility] Last Admin: 12/23/24 08:26 Dose: 5 mg Trazodone HCl (Trazodone Hcl 50 Mg Tablet) 50 mg PO BEDTIME MRX1 PRN PRN Reason: Insomnia Last Admin: 12/22/24 20:13 Dose: 50 mg Allergies Allergies Allergy/AdvReac Type Severity Reaction Status Date / Time No Known Allergies Allergy Verified 12/18/24 07:50 Assessment & Plan Assessment & Plan (1) Acute psychosis: Status: Acute Code(s): F23 - Brief psychotic disorder (2) PTSD (post-traumatic stress disorder): Status: Acute Code(s): F43.10 - Post-traumatic stress disorder, unspecified Plan Admit, CV, 15 minute checks, TDN filed. Collateral Contact Diagnostics as needed Encourage full milieu Pt is willing to take medications. Olanzapine 5 mg bid to begin. 12/20: Less frightened, retracted TDN. Continue regime 12/21: Active on unit, social with peers. patient reports feeling good today; denies any issues at this time. showered. denies SI/HI/VH/AH. denies any side effects from medications. continue current tx plan. 12/22: continue current tx plan. 12/23: Zyprexa increased to 5mg PO daily and 10mg PO bedtime. Patient educated on: diagnosis, medication risk/benefits and therapeutic strategies Reason for continued inpatient stay Substantial Risk for: med/psych decompensation Time Spent With Patient Time: Total time managing care of this patient today _20___ minutes.
[2024-12-23 19:59] VITALS: BP 134/85; PULSE 110; RESP 16; TEMP 36.5; O2SAT 97
[2024-12-23] MEDS: Milk of Magnesia 30 ML ORAL.SUSP PO (20:18)
[2024-12-23] MEDS: OLANZapine 10 MG TABLET PO (20:18)
[2024-12-24 07:41] VITALS: BP 121/82; PULSE 114; RESP 16; TEMP 37.3; O2SAT 98
[2024-12-24] MEDS: OLANZapine 5 MG TABLET PO ×2 (08:00→16:19)
[2024-12-24] MEDS: Atorvastatin Calcium 80 MG TABLET PO (08:00)
[2024-12-24] MEDS: Metoprolol Succinate ER 25 MG TAB.ER.24H PO (08:00)
[2024-12-24] MEDS: Magnesium Hydrox/Alum Hydrox 30 ML ORAL.SUSP PO (08:07)
[2024-12-24] MEDS: polyethylene glycoL 3350 17 GM POWD.PACK PO (15:02)
[2024-12-24] MEDS: Docusate Sodium 100 MG CAPSULE PO ×2 (15:02→20:52)
--- NOTE | 2024-12-24 16:40 | P.PNPSI_ITS ---
Subjective Subjective Date of Service: 12/24/24 Reason For Visit: SI;Psychosis Interim History: happy with olanzapine effects. some concern about constipation. agreed to start colace 100 BID and miralax 17 gm daily PRN also ordered. google glasses? Mental Status Exam Mental Status Exam Patient Appearance: Well Grooomed Patient Orientation: Person, Place, Time and Situation Level of Consciousness: Awake and Alert Patient Behavior: Appropriate and Cooperative Mood Description: Anxious Affect Description: Anxious Patient Cognition Impaired: No Ability to Follow Directions: Good Speech Pattern: Clear and Appropriate Memory Description: Intact Hallucinations: None Delusions: Paranoid Ideation Thought Process: Intact Thought Content: positive for Intact Diagnostics Vital Signs (24Hr): Vital Signs - 24 hr 12/23/24 19:59 12/24/24 07:41 Temperature 97.7 F 99.1 F Pulse Rate 110 H 114 H Respiratory Rate 16 16 Blood Pressure 134/85 121/82 Pulse Oximetry 97 98 Oxygen Delivery Method Room Air BMI result Body Mass Index 28.9 Labs 12/18/24 08:04 12/19/24 07:53 Medications Medications Current Medications Acetaminophen (Acetaminophen 325 Mg Tablet) 650 mg PO Q6H PRN PRN Reason: Headache/Pain, Scale 1-10 Last Admin: 12/21/24 23:07 Dose: 650 mg Al Hydroxide/Mg Hydroxide (Magnesium Hydrox/Alum Hydrox 30 Ml Oral.Susp) 30 ml PO Q6H PRN PRN Reason: Heartburn/Nausea Last Admin: 12/24/24 08:07 Dose: 30 ml Atorvastatin Calcium (Atorvastatin Calcium 80 Mg Tablet) 80 mg PO DAILY [facility] Last Admin: 12/24/24 08:00 Dose: 80 mg Docusate Sodium (Docusate Sodium 100 Mg Capsule) 100 mg PO BID [facility] Last Admin: 12/24/24 15:02 Dose: 100 mg Hydroxyzine HCl (Hydroxyzine Hcl 25 Mg Tablet) 25 mg PO Q6H PRN PRN Reason: mild anxiety Last Admin: 12/19/24 20:06 Dose: 25 mg Magnesium Hydroxide (Milk Of Magnesia 30 Ml Oral.Susp) 30 ml PO DAILY PRN PRN Reason: Constipation Last Admin: 12/23/24 20:18 Dose: 30 ml Metoprolol Succinate (Metoprolol Succinate Er 25 Mg Tab.Er.24h) 25 mg PO DAILY [facility]; Protocol Last Admin: 12/24/24 08:00 Dose: 25 mg Nicotine (Nicotine 21 Mg Patch.Td24) 21 mg TRANSDERMA DAILY PRN PRN Reason: smoking cessation Nicotine Polacrilex (Nicotine Polacrilex 2 Mg Gum) 4 mg BUCCAL Q2H PRN PRN Reason: Nicotine Cravings Last Admin: 12/21/24 20:52 Dose: 4 mg Olanzapine (Olanzapine 5 Mg Tablet) 5 mg PO TID PRN PRN Reason: agitation Last Admin: 12/24/24 16:19 Dose: 5 mg Olanzapine (Olanzapine 10 Mg Tablet) 10 mg PO BEDTIME [facility] Last Admin: 12/23/24 20:18 Dose: 10 mg Olanzapine (Olanzapine 5 Mg Tablet) 5 mg PO DAILY [facility] Last Admin: 12/24/24 08:00 Dose: 5 mg Polyethylene Glycol (Polyethylene Glycol 3350 17 Gm Powd.Pack) 17 gm PO DAILY PRN PRN Reason: Constipation Last Admin: 12/24/24 15:02 Dose: 17 gm Trazodone HCl (Trazodone Hcl 50 Mg Tablet) 50 mg PO BEDTIME MRX1 PRN PRN Reason: Insomnia Last Admin: 12/22/24 20:13 Dose: 50 mg Allergies Allergies Allergy/AdvReac Type Severity Reaction Status Date / Time No Known Allergies Allergy Verified 12/18/24 07:50 Assessment & Plan Assessment & Plan (1) Acute psychosis: Status: Acute Code(s): F23 - Brief psychotic disorder (2) PTSD (post-traumatic stress disorder): Status: Acute Code(s): F43.10 - Post-traumatic stress disorder, unspecified Plan Admit, CV, 15 minute checks, TDN filed. Collateral Contact Diagnostics as needed Encourage full milieu Pt is willing to take medications. Olanzapine 5 mg bid to begin. 12/20: Less frightened, retracted TDN. Continue regime 12/21: Active on unit, social with peers. patient reports feeling good today; denies any issues at this time. showered. denies SI/HI/VH/AH. denies any side effects from medications. continue current tx plan. 12/22: continue current tx plan. 12/23: Zyprexa increased to 5mg PO daily and 10mg PO bedtime. 12/24: feeling positive about effects of olanzapine on his thoughts. constipation has become a problem. start colace 100 BID and miralax 17 gm daily PRN. continue current olanzapine orders. Reason for continued inpatient stay Substantial Risk for: inability to function and rapid decompensation Time Spent With Patient Time: Total time managing care of this patient today __25__ minutes.
[2024-12-24 19:54] VITALS: BP 122/76; PULSE 123; RESP 18; TEMP 36.8; O2SAT 97
[2024-12-24] MEDS: OLANZapine 10 MG TABLET PO (20:52)
[2024-12-25 08:22] VITALS: BP 138/100; PULSE 120; RESP 16; TEMP 36.4; O2SAT 98
[2024-12-25 08:33] VITALS: BP 149/84; PULSE 102
[2024-12-25] MEDS: Docusate Sodium 100 MG CAPSULE PO ×2 (08:45→20:30)
[2024-12-25] MEDS: Atorvastatin Calcium 80 MG TABLET PO (08:45)
[2024-12-25] MEDS: OLANZapine 5 MG TABLET PO (08:45)
[2024-12-25] MEDS: Metoprolol Succinate ER 25 MG TAB.ER.24H PO (08:45)
--- NOTE | 2024-12-25 12:18 | PC.NURSE ---
Magdy mother Carlie called, (completed CRISTINA in chart) for upate on pt. Carlie was informed that Blaine is taking all his medications and reports a decrease in paranoia symptoms and also reports improved sleep. Carlie states that Blaine is a master at leading people to believe he is fine . Carlie reports that a few days ago Blaine called her to say maybe they'll just take an arm and not kill me . She also reports Blaine made phone calls to several family members over last few days just calling to say goodbye . Carlie adds that 22yrs ago the pt received a compression fracture at the base of his skull 22years ago and only had 1 MRI . She feels Blaine would benefit from another MRI. Carlie goes on to state that in September of this year she and her became ill and were both in the hospital and Blaine was left home alone which never happens . When I was released from the hospital 4 days later and came home he was very withdrawn and paranoid, alot more some than before . She reports he seldom leaves home anymore and engages less with his 2 best friends. His brother has had multiple brain tumors and several stroke and it really seemed to affect him . Pt is requesting a call from the doctor to further discuss treatment. Provider JEFFERSON and ammonia refrigeration worker ME notified via tiger text
[2024-12-25] MEDS: polyethylene glycoL 3350 17 GM POWD.PACK PO (17:53)
[2024-12-25 19:41] VITALS: BP 146/89; PULSE 97; TEMP 37.1; O2SAT 98
[2024-12-25] MEDS: OLANZapine 10 MG TABLET PO (20:30)
[2024-12-26 07:00] VITALS: BMI 27.1
[2024-12-26] MEDS: Metoprolol Succinate ER 25 MG TAB.ER.24H PO (08:10)
[2024-12-26] MEDS: OLANZapine 5 MG TABLET PO ×2 (08:10→18:24)
[2024-12-26] MEDS: Atorvastatin Calcium 80 MG TABLET PO (08:10)
[2024-12-26] MEDS: Docusate Sodium 100 MG CAPSULE PO ×2 (08:10→21:13)
[2024-12-26 08:11] VITALS: BP 124/78; PULSE 103; RESP 18; TEMP 36.8; O2SAT 97
[2024-12-26] MEDS: Milk of Magnesia 30 ML ORAL.SUSP PO (14:03)
--- NOTE | 2024-12-26 15:40 | HO.PSYCHPN ---
Subjective Subjective Date of Service: 12/26/24 Reason For Visit: SI;Psychosis Subjective Notes: Conditional Voluntary Interim History: Active on unit. Patient reports feeling better today; pt stated, I feel like the increase in medication helped. I slept great last night . pt reports he is not having intrusive thoughts today. denies SI/HI/VH/AH. Pt reports he would like to start discussing discharge with nursing home social worker and T/W. nursing home social worker aware. Medication Compliance: Yes Side effects from medications: No Attending Groups: Yes Mental Status Exam Mental Status Exam Patient Appearance: Well Grooomed Patient Orientation: Person, Place, Time and Situation Level of Consciousness: Awake and Alert Patient Behavior: Appropriate, Cooperative and Good Eye Contact Mood Description: Calm Affect Description: Calm Ability to Follow Directions: Good Speech Pattern: Clear and Appropriate Memory Description: Intact Hallucinations: None Delusions: Not Present Thought Process: Intact Thought Content: positive for Intact Diagnostics Vital Signs (24Hr): Vital Signs - 24 hr 12/25/24 19:41 12/26/24 08:11 Temperature 98.7 F 98.2 F Pulse Rate 97 103 H Respiratory Rate 18 Blood Pressure 146/89 H 124/78 Pulse Oximetry 98 97 Oxygen Delivery Method Room Air Room Air BMI result Body Mass Index 27.1 Labs 12/18/24 08:04 12/19/24 07:53 Medications Medications Current Medications Acetaminophen (Acetaminophen 325 Mg Tablet) 650 mg PO Q6H PRN PRN Reason: Headache/Pain, Scale 1-10 Last Admin: 12/21/24 23:07 Dose: 650 mg Al Hydroxide/Mg Hydroxide (Magnesium Hydrox/Alum Hydrox 30 Ml Oral.Susp) 30 ml PO Q6H PRN PRN Reason: Heartburn/Nausea Last Admin: 12/24/24 08:07 Dose: 30 ml Atorvastatin Calcium (Atorvastatin Calcium 80 Mg Tablet) 80 mg PO DAILY [facility] Last Admin: 12/26/24 08:10 Dose: 80 mg Docusate Sodium (Docusate Sodium 100 Mg Capsule) 100 mg PO BID [facility] Last Admin: 12/26/24 08:10 Dose: 100 mg Hydroxyzine HCl (Hydroxyzine Hcl 25 Mg Tablet) 25 mg PO Q6H PRN PRN Reason: mild anxiety Last Admin: 12/19/24 20:06 Dose: 25 mg Magnesium Hydroxide (Milk Of Magnesia 30 Ml Oral.Susp) 30 ml PO DAILY PRN PRN Reason: Constipation Last Admin: 12/26/24 14:03 Dose: 30 ml Metoprolol Succinate (Metoprolol Succinate Er 25 Mg Tab.Er.24h) 25 mg PO DAILY [facility]; Protocol Last Admin: 12/26/24 08:10 Dose: 25 mg Nicotine (Nicotine 21 Mg Patch.Td24) 21 mg TRANSDERMA DAILY PRN PRN Reason: smoking cessation Nicotine Polacrilex (Nicotine Polacrilex 2 Mg Gum) 4 mg BUCCAL Q2H PRN PRN Reason: Nicotine Cravings Last Admin: 12/21/24 20:52 Dose: 4 mg Olanzapine (Olanzapine 5 Mg Tablet) 5 mg PO TID PRN PRN Reason: agitation Last Admin: 12/24/24 16:19 Dose: 5 mg Olanzapine (Olanzapine 10 Mg Tablet) 10 mg PO BEDTIME [facility] Last Admin: 12/25/24 20:30 Dose: 10 mg Olanzapine (Olanzapine 5 Mg Tablet) 5 mg PO DAILY [facility] Last Admin: 12/26/24 08:10 Dose: 5 mg Polyethylene Glycol (Polyethylene Glycol 3350 17 Gm Powd.Pack) 17 gm PO DAILY PRN PRN Reason: Constipation Last Admin: 12/25/24 17:53 Dose: 17 gm Trazodone HCl (Trazodone Hcl 50 Mg Tablet) 50 mg PO BEDTIME MRX1 PRN PRN Reason: Insomnia Last Admin: 12/22/24 20:13 Dose: 50 mg Allergies Allergies Allergy/AdvReac Type Severity Reaction Status Date / Time No Known Allergies Allergy Verified 12/18/24 07:50 Assessment & Plan Assessment & Plan (1) Acute psychosis: Status: Acute Code(s): F23 - Brief psychotic disorder (2) PTSD (post-traumatic stress disorder): Status: Acute Code(s): F43.10 - Post-traumatic stress disorder, unspecified Plan Admit, CV, 15 minute checks, TDN filed. Collateral Contact Diagnostics as needed Encourage full milieu Pt is willing to take medications. Olanzapine 5 mg bid to begin. 12/20: Less frightened, retracted TDN. Continue regime 12/21: Active on unit, social with peers. patient reports feeling good today; denies any issues at this time. showered. denies SI/HI/VH/AH. denies any side effects from medications. continue current tx plan. 12/22: continue current tx plan. 12/23: Zyprexa increased to 5mg PO daily and 10mg PO bedtime. 12/24: feeling positive about effects of olanzapine on his thoughts. constipation has become a problem. start colace 100 BID and miralax 17 gm daily PRN. continue current olanzapine orders. 12/26: Active on unit. Patient reports feeling better today; pt stated, I feel like the increase in medication helped. I slept great last night . pt reports he is not having intrusive thoughts today. denies SI/HI/VH/AH. Pt reports he would like to start discussing discharge with nursing home social worker and T/W. nursing home social worker aware. Patient educated on: diagnosis, medication risk/benefits and therapeutic strategies Reason for continued inpatient stay Substantial Risk for: med/psych decompensation Time Spent With Patient Time: Total time managing care of this patient today _20___ minutes.
[2024-12-26] MEDS: polyethylene glycoL 3350 17 GM POWD.PACK PO (16:10)
[2024-12-26 20:00] VITALS: BP 128/76; PULSE 106; RESP 16; TEMP 36.4; O2SAT 97
[2024-12-26] MEDS: OLANZapine 10 MG TABLET PO (21:13)
[2024-12-27 08:15] VITALS: BP 117/73; PULSE 96; TEMP 37; O2SAT 98
[2024-12-27] MEDS: Metoprolol Succinate ER 25 MG TAB.ER.24H PO (09:08)
[2024-12-27] MEDS: Docusate Sodium 100 MG CAPSULE PO ×2 (09:08→20:40)
[2024-12-27] MEDS: OLANZapine 5 MG TABLET PO (09:08)
[2024-12-27] MEDS: Atorvastatin Calcium 80 MG TABLET PO (09:08)
--- NOTE | 2024-12-27 11:07 | P.PNPSI_ITS ---
Subjective Subjective Date of Service: 12/27/24 Reason For Visit: SI;Psychosis Interim History: Patient reports feeling good ; pt stated, I'm doing well. I'm not having any anxiety and I'm sleeping well . Plan to discharge home on Monday if continues to do well. denies SI/HI/VH/AH. Medication Compliance: Yes Side effects from medications: No Attending Groups: Yes Mental Status Exam Mental Status Exam Patient Appearance: Well Grooomed Patient Orientation: Person, Place, Time and Situation Level of Consciousness: Awake and Alert Patient Behavior: Appropriate, Cooperative and Good Eye Contact Mood Description: Calm Affect Description: Calm Patient Cognition Impaired: No Ability to Follow Directions: Good Speech Pattern: Clear and Appropriate Memory Description: Intact Hallucinations: None Delusions: Not Present Thought Process: Intact Thought Content: positive for Intact Diagnostics Vital Signs (24Hr): Vital Signs - 24 hr 12/26/24 20:00 12/27/24 08:15 Temperature 97.5 F 98.6 F Pulse Rate 106 H 96 Respiratory Rate 16 Blood Pressure 128/76 117/73 Pulse Oximetry 97 98 Oxygen Delivery Method Room Air Room Air BMI result Body Mass Index 27.1 Labs 12/18/24 08:04 12/19/24 07:53 Medications Medications Current Medications Acetaminophen (Acetaminophen 325 Mg Tablet) 650 mg PO Q6H PRN PRN Reason: Headache/Pain, Scale 1-10 Last Admin: 12/21/24 23:07 Dose: 650 mg Al Hydroxide/Mg Hydroxide (Magnesium Hydrox/Alum Hydrox 30 Ml Oral.Susp) 30 ml PO Q6H PRN PRN Reason: Heartburn/Nausea Last Admin: 12/24/24 08:07 Dose: 30 ml Atorvastatin Calcium (Atorvastatin Calcium 80 Mg Tablet) 80 mg PO DAILY [facility] Last Admin: 12/27/24 09:08 Dose: 80 mg Docusate Sodium (Docusate Sodium 100 Mg Capsule) 100 mg PO BID [facility] Last Admin: 12/27/24 09:08 Dose: 100 mg Hydroxyzine HCl (Hydroxyzine Hcl 25 Mg Tablet) 25 mg PO Q6H PRN PRN Reason: mild anxiety Last Admin: 12/19/24 20:06 Dose: 25 mg Magnesium Hydroxide (Milk Of Magnesia 30 Ml Oral.Susp) 30 ml PO DAILY PRN PRN Reason: Constipation Last Admin: 12/26/24 14:03 Dose: 30 ml Metoprolol Succinate (Metoprolol Succinate Er 25 Mg Tab.Er.24h) 25 mg PO DAILY [facility]; Protocol Last Admin: 12/27/24 09:08 Dose: 25 mg Nicotine (Nicotine 21 Mg Patch.Td24) 21 mg TRANSDERMA DAILY PRN PRN Reason: smoking cessation Nicotine Polacrilex (Nicotine Polacrilex 2 Mg Gum) 4 mg BUCCAL Q2H PRN PRN Reason: Nicotine Cravings Last Admin: 12/21/24 20:52 Dose: 4 mg Olanzapine (Olanzapine 5 Mg Tablet) 5 mg PO TID PRN PRN Reason: agitation Last Admin: 12/26/24 18:24 Dose: 5 mg Olanzapine (Olanzapine 10 Mg Tablet) 10 mg PO BEDTIME [facility] Last Admin: 12/26/24 21:13 Dose: 10 mg Olanzapine (Olanzapine 5 Mg Tablet) 5 mg PO DAILY [facility] Last Admin: 12/27/24 09:08 Dose: 5 mg Polyethylene Glycol (Polyethylene Glycol 3350 17 Gm Powd.Pack) 17 gm PO DAILY PRN PRN Reason: Constipation Last Admin: 12/26/24 16:10 Dose: 17 gm Trazodone HCl (Trazodone Hcl 50 Mg Tablet) 50 mg PO BEDTIME MRX1 PRN PRN Reason: Insomnia Last Admin: 12/22/24 20:13 Dose: 50 mg Allergies Allergies Allergy/AdvReac Type Severity Reaction Status Date / Time No Known Allergies Allergy Verified 12/18/24 07:50 Assessment & Plan Assessment & Plan (1) Acute psychosis: Status: Acute Code(s): F23 - Brief psychotic disorder (2) PTSD (post-traumatic stress disorder): Status: Acute Code(s): F43.10 - Post-traumatic stress disorder, unspecified Plan Admit, CV, 15 minute checks, TDN filed. Collateral Contact Diagnostics as needed Encourage full milieu Pt is willing to take medications. Olanzapine 5 mg bid to begin. 12/20: Less frightened, retracted TDN. Continue regime 12/21: Active on unit, social with peers. patient reports feeling good today; denies any issues at this time. showered. denies SI/HI/VH/AH. denies any side effects from medications. continue current tx plan. 12/22: continue current tx plan. 12/23: Zyprexa increased to 5mg PO daily and 10mg PO bedtime. 12/24: feeling positive about effects of olanzapine on his thoughts. constipation has become a problem. start colace 100 BID and miralax 17 gm daily PRN. continue current olanzapine orders. 12/26: Active on unit. Patient reports feeling better today; pt stated, I feel like the increase in medication helped. I slept great last night . pt reports he is not having intrusive thoughts today. denies SI/HI/VH/AH. Pt reports he would like to start discussing discharge with social sciences instructor and T/W. social sciences instructor aware. 12/27: Patient reports feeling good ; pt stated, I'm doing well. I'm not having any anxiety and I'm sleeping well . Plan to discharge home on Monday if continues to do well. denies SI/HI/VH/AH. Patient educated on: diagnosis, medication risk/benefits and therapeutic strategies Reason for continued inpatient stay Substantial Risk for: med/psych decompensation Time Spent With Patient Time: Total time managing care of this patient today _20___ minutes.
[2024-12-27] MEDS: polyethylene glycoL 3350 17 GM POWD.PACK PO (14:45)
[2024-12-27 20:00] VITALS: BP 134/81; PULSE 75; RESP 16; TEMP 36.6; O2SAT 98
[2024-12-27] MEDS: Magnesium Hydrox/Alum Hydrox 30 ML ORAL.SUSP PO (20:40)
[2024-12-27] MEDS: OLANZapine 10 MG TABLET PO (20:40)
[2024-12-28 07:45] VITALS: BP 135/95; PULSE 95; TEMP 36.4; O2SAT 98
[2024-12-28 08:51] VITALS: BP 135/95; PULSE 99
[2024-12-28] MEDS: OLANZapine 5 MG TABLET PO (08:51)
[2024-12-28] MEDS: Docusate Sodium 100 MG CAPSULE PO ×2 (08:51→20:44)
[2024-12-28] MEDS: Metoprolol Succinate ER 25 MG TAB.ER.24H PO (08:51)
[2024-12-28] MEDS: Atorvastatin Calcium 80 MG TABLET PO (08:53)
--- NOTE | 2024-12-28 10:42 | P.PNPSI_ITS ---
Subjective Subjective Date of Service: 12/28/24 Reason For Visit: SI;Psychosis Subjective Notes: Conditional Voluntary and 3 Day Interim History: Patient was seen and discussed in rounds today. Records and plans were reviewed. Has been stable, pleasant and cooperative. Attending groups. No SI. Eating and sleeping well. No complaints or side effects. No changes were made today. He has a [address] which expires on 12/30 Review of Systems Review of Systems Yes all other systems are reviewed and are negative Mental Status Exam Mental Status Exam Patient Appearance: Well Grooomed Patient Orientation: Person, Place, Time and Situation Level of Consciousness: Awake and Alert Patient Behavior: Appropriate, Cooperative and Good Eye Contact Mood Description: Calm Affect Description: Calm Patient Cognition Impaired: No Ability to Follow Directions: Good Speech Pattern: Clear and Appropriate Memory Description: Intact Hallucinations: None Delusions: Not Present Thought Process: Intact Thought Content: positive for Intact Diagnostics Vital Signs (24Hr): Vital Signs - 24 hr 12/27/24 20:00 12/28/24 07:45 12/28/24 08:51 Temperature 97.8 F 97.5 F Pulse Rate 75 95 99 Respiratory Rate 16 Blood Pressure 134/81 135/95 H 135/95 H Pulse Oximetry 98 98 Oxygen Delivery Method Room Air Room Air BMI result Body Mass Index 27.1 Labs 12/18/24 08:04 12/19/24 07:53 Medications Medications Current Medications Acetaminophen (Acetaminophen 325 Mg Tablet) 650 mg PO Q6H PRN PRN Reason: Headache/Pain, Scale 1-10 Last Admin: 12/21/24 23:07 Dose: 650 mg Al Hydroxide/Mg Hydroxide (Magnesium Hydrox/Alum Hydrox 30 Ml Oral.Susp) 30 ml PO Q6H PRN PRN Reason: Heartburn/Nausea Last Admin: 12/27/24 20:40 Dose: 30 ml Atorvastatin Calcium (Atorvastatin Calcium 80 Mg Tablet) 80 mg PO DAILY [facility] Last Admin: 12/28/24 08:53 Dose: 80 mg Docusate Sodium (Docusate Sodium 100 Mg Capsule) 100 mg PO BID [facility] Last Admin: 12/28/24 08:51 Dose: 100 mg Hydroxyzine HCl (Hydroxyzine Hcl 25 Mg Tablet) 25 mg PO Q6H PRN PRN Reason: mild anxiety Last Admin: 12/19/24 20:06 Dose: 25 mg Magnesium Hydroxide (Milk Of Magnesia 30 Ml Oral.Susp) 30 ml PO DAILY PRN PRN Reason: Constipation Last Admin: 12/26/24 14:03 Dose: 30 ml Metoprolol Succinate (Metoprolol Succinate Er 25 Mg Tab.Er.24h) 25 mg PO DAILY [facility]; Protocol Last Admin: 12/28/24 08:51 Dose: 25 mg Nicotine (Nicotine 21 Mg Patch.Td24) 21 mg TRANSDERMA DAILY PRN PRN Reason: smoking cessation Nicotine Polacrilex (Nicotine Polacrilex 2 Mg Gum) 4 mg BUCCAL Q2H PRN PRN Reason: Nicotine Cravings Last Admin: 12/21/24 20:52 Dose: 4 mg Olanzapine (Olanzapine 5 Mg Tablet) 5 mg PO TID PRN PRN Reason: agitation Last Admin: 12/26/24 18:24 Dose: 5 mg Olanzapine (Olanzapine 10 Mg Tablet) 10 mg PO BEDTIME [facility] Last Admin: 12/27/24 20:40 Dose: 10 mg Olanzapine (Olanzapine 5 Mg Tablet) 5 mg PO DAILY [facility] Last Admin: 12/28/24 08:51 Dose: 5 mg Polyethylene Glycol (Polyethylene Glycol 3350 17 Gm Powd.Pack) 17 gm PO DAILY PRN PRN Reason: Constipation Last Admin: 12/27/24 14:45 Dose: 17 gm Trazodone HCl (Trazodone Hcl 50 Mg Tablet) 50 mg PO BEDTIME MRX1 PRN PRN Reason: Insomnia Last Admin: 12/22/24 20:13 Dose: 50 mg Allergies Allergies Allergy/AdvReac Type Severity Reaction Status Date / Time No Known Allergies Allergy Verified 12/18/24 07:50 Assessment & Plan Assessment & Plan (1) Acute psychosis: Status: Acute Code(s): F23 - Brief psychotic disorder (2) PTSD (post-traumatic stress disorder): Status: Acute Code(s): F43.10 - Post-traumatic stress disorder, unspecified Plan Admit, CV, 15 minute checks, TDN filed. Collateral Contact Diagnostics as needed Encourage full milieu Pt is willing to take medications. Olanzapine 5 mg bid to begin. 12/20: Less frightened, retracted TDN. Continue regime 12/21: Active on unit, social with peers. patient reports feeling good today; denies any issues at this time. showered. denies SI/HI/VH/AH. denies any side effects from medications. continue current tx plan. 12/22: continue current tx plan. 12/23: Zyprexa increased to 5mg PO daily and 10mg PO bedtime. 12/24: feeling positive about effects of olanzapine on his thoughts. constipation has become a problem. start colace 100 BID and miralax 17 gm daily PRN. continue current olanzapine orders. 12/26: Active on unit. Patient reports feeling better today; pt stated, I feel like the increase in medication helped. I slept great last night . pt reports he is not having intrusive thoughts today. denies SI/HI/VH/AH. Pt reports he would like to start discussing discharge with outreach and education social worker and T/W. outreach and education social worker aware. 12/27: Patient reports feeling good ; pt stated, I'm doing well. I'm not having any anxiety and I'm sleeping well . Plan to discharge home on Monday if continues to do well. denies SI/HI/VH/AH. 12/28: Continue current regimen and plans. Reason for continued inpatient stay Substantial Risk for: med/psych decompensation Time Spent With Patient Time: Total time managing care of this patient today ____ minutes.
[2024-12-28] MEDS: Milk of Magnesia 30 ML ORAL.SUSP PO (19:20)
[2024-12-28 20:00] VITALS: BP 137/83; PULSE 107; RESP 18; TEMP 36.8; O2SAT 97
[2024-12-28] MEDS: OLANZapine 10 MG TABLET PO (20:44)
[2024-12-29 08:25] VITALS: BP 132/99; PULSE 83; TEMP 37.1; O2SAT 98
--- NOTE | 2024-12-29 08:50 | HO.PSYCHPN ---
Subjective Subjective Date of Service: 12/29/24 Reason For Visit: SI;Psychosis Subjective Notes: Conditional Voluntary and 3 Day Interim History: Patient was seen and discussed in rounds today. Records and plans were reviewed. He has been doing fairly well. Attending some groups. He has been pleasant and cooperative. Social with peers. Eating and sleeping well. No SI. No changes were made today. His 3 day is up tomorrow Review of Systems Review of Systems Yes all other systems are reviewed and are negative Mental Status Exam Mental Status Exam Patient Appearance: Well Grooomed Patient Orientation: Person, Place, Time and Situation Level of Consciousness: Awake and Alert Patient Behavior: Appropriate, Cooperative and Good Eye Contact Mood Description: Calm Affect Description: Calm Patient Cognition Impaired: No Ability to Follow Directions: Good Speech Pattern: Clear and Appropriate Memory Description: Intact Hallucinations: None Delusions: Not Present Thought Process: Intact Thought Content: positive for Intact Diagnostics Vital Signs (24Hr): Vital Signs - 24 hr 12/28/24 08:51 12/28/24 20:00 12/29/24 08:25 Temperature 98.3 F 98.7 F Pulse Rate 99 107 H 83 Respiratory Rate 18 Blood Pressure 135/95 H 137/83 132/99 H Pulse Oximetry 97 98 Oxygen Delivery Method Room Air Room Air BMI result Body Mass Index 27.1 Labs 12/18/24 08:04 12/19/24 07:53 Medications Medications Current Medications Acetaminophen (Acetaminophen 325 Mg Tablet) 650 mg PO Q6H PRN PRN Reason: Headache/Pain, Scale 1-10 Last Admin: 12/21/24 23:07 Dose: 650 mg Al Hydroxide/Mg Hydroxide (Magnesium Hydrox/Alum Hydrox 30 Ml Oral.Susp) 30 ml PO Q6H PRN PRN Reason: Heartburn/Nausea Last Admin: 12/27/24 20:40 Dose: 30 ml Atorvastatin Calcium (Atorvastatin Calcium 80 Mg Tablet) 80 mg PO DAILY [facility] Last Admin: 12/28/24 08:53 Dose: 80 mg Docusate Sodium (Docusate Sodium 100 Mg Capsule) 100 mg PO BID [facility] Last Admin: 12/28/24 20:44 Dose: 100 mg Hydroxyzine HCl (Hydroxyzine Hcl 25 Mg Tablet) 25 mg PO Q6H PRN PRN Reason: mild anxiety Last Admin: 12/19/24 20:06 Dose: 25 mg Magnesium Hydroxide (Milk Of Magnesia 30 Ml Oral.Susp) 30 ml PO DAILY PRN PRN Reason: Constipation Last Admin: 12/28/24 19:20 Dose: 30 ml Metoprolol Succinate (Metoprolol Succinate Er 25 Mg Tab.Er.24h) 25 mg PO DAILY ALIRIO; Protocol Last Admin: 12/28/24 08:51 Dose: 25 mg Nicotine (Nicotine 21 Mg Patch.Td24) 21 mg TRANSDERMA DAILY PRN PRN Reason: smoking cessation Nicotine Polacrilex (Nicotine Polacrilex 2 Mg Gum) 4 mg BUCCAL Q2H PRN PRN Reason: Nicotine Cravings Last Admin: 12/21/24 20:52 Dose: 4 mg Olanzapine (Olanzapine 5 Mg Tablet) 5 mg PO TID PRN PRN Reason: agitation Last Admin: 12/26/24 18:24 Dose: 5 mg Olanzapine (Olanzapine 10 Mg Tablet) 10 mg PO BEDTIME ALIRIO Last Admin: 12/28/24 20:44 Dose: 10 mg Olanzapine (Olanzapine 5 Mg Tablet) 5 mg PO DAILY [facility] Last Admin: 12/28/24 08:51 Dose: 5 mg Polyethylene Glycol (Polyethylene Glycol 3350 17 Gm Powd.Pack) 17 gm PO DAILY PRN PRN Reason: Constipation Last Admin: 12/27/24 14:45 Dose: 17 gm Trazodone HCl (Trazodone Hcl 50 Mg Tablet) 50 mg PO BEDTIME MRX1 PRN PRN Reason: Insomnia Last Admin: 12/22/24 20:13 Dose: 50 mg Allergies Allergies Allergy/AdvReac Type Severity Reaction Status Date / Time No Known Allergies Allergy Verified 12/18/24 07:50 Assessment & Plan Assessment & Plan (1) Acute psychosis: Status: Acute Code(s): F23 - Brief psychotic disorder (2) PTSD (post-traumatic stress disorder): Status: Acute Code(s): F43.10 - Post-traumatic stress disorder, unspecified Plan Admit, CV, 15 minute checks, TDN filed. Collateral Contact Diagnostics as needed Encourage full milieu Pt is willing to take medications. Olanzapine 5 mg bid to begin. 12/20: Less frightened, retracted TDN. Continue regime 12/21: Active on unit, social with peers. patient reports feeling good today; denies any issues at this time. showered. denies SI/HI/VH/AH. denies any side effects from medications. continue current tx plan. 12/22: continue current tx plan. 12/23: Zyprexa increased to 5mg PO daily and 10mg PO bedtime. 12/24: feeling positive about effects of olanzapine on his thoughts. constipation has become a problem. start colace 100 BID and miralax 17 gm daily PRN. continue current olanzapine orders. 12/26: Active on unit. Patient reports feeling better today; pt stated, I feel like the increase in medication helped. I slept great last night . pt reports he is not having intrusive thoughts today. denies SI/HI/VH/AH. Pt reports he would like to start discussing discharge with high school social studies teacher and [employer] high school social studies teacher aware. 12/27: Patient reports feeling good ; pt stated, I'm doing well. I'm not having any anxiety and I'm sleeping well . Plan to discharge home on Monday if continues to do well. denies SI/HI/VH/AH. 12/28: Continue current regimen and plans. 12/29: Continue current regimen and plans. Reason for continued inpatient stay Substantial Risk for: med/psych decompensation Time Spent With Patient Time: Total time managing care of this patient today ____ minutes.
[2024-12-29] MEDS: Atorvastatin Calcium 80 MG TABLET PO (08:59)
[2024-12-29] MEDS: Metoprolol Succinate ER 25 MG TAB.ER.24H PO (09:00)
[2024-12-29] MEDS: OLANZapine 5 MG TABLET PO (09:00)
[2024-12-29] MEDS: Docusate Sodium 100 MG CAPSULE PO ×2 (09:00→21:13)
[2024-12-29] MEDS: polyethylene glycoL 3350 17 GM POWD.PACK PO (10:08)
[2024-12-29] MEDS: Lactulose 20 GM/30 ML SOLUTION 30 GM PO (11:15)
[2024-12-29 20:00] VITALS: BP 144/108; PULSE 122; TEMP 36.5; O2SAT 97
[2024-12-29] MEDS: OLANZapine 10 MG TABLET PO (21:12)
[2024-12-29] MEDS: Acetaminophen 325 MG TABLET 650 MG PO (21:19)
[2024-12-30 08:00] VITALS: BP 132/59; PULSE 115; RESP 16; TEMP 36.7; O2SAT 98
[2024-12-30 08:55] VITALS: BP 132/59; PULSE 115
[2024-12-30] MEDS: OLANZapine 5 MG TABLET PO (08:55)
[2024-12-30] MEDS: Metoprolol Succinate ER 25 MG TAB.ER.24H PO (08:55)
[2024-12-30] MEDS: Docusate Sodium 100 MG CAPSULE PO (08:56)
[2024-12-30] MEDS: Atorvastatin Calcium 80 MG TABLET PO (08:56)
--- NOTE | 2024-12-30 10:15 | P.DS_ITS ---
DS: Providers Provider Date of Service: 12/30/24 Date of admission: 12/18/24 18:08 Date of discharge: 12/30/24 Primary care physician: Lorin Hill MD Admitting clinician: Tracy Lemus Attending physician on admission: Jude Spear Attending physician on discharge: Jude Spear Discharging clinician: Sasha Parks DS: Diagnosis Discharge Diagnosis (1) Acute psychosis: Status: Acute (2) PTSD (post-traumatic stress disorder): Status: Acute DS: Medications Discharge Medications Home Medications: Home Medications ?Medication ?Instructions ?Recorded ?Confirmed aspirin 81 mg chewable tablet 1 tab PO DAILY 12/18/24 12/18/24 atorvastatin 80 mg tablet 80 mg PO DAILY 12/18/24 12/18/24 metoprolol succinate 25 mg 25 mg PO DAILY 12/18/24 12/18/24 tablet,extended release 24 hr Mental Status Exam Mental Status Exam Narrative: Pt is alert and oriented; behavior is cooperative and calm; dressed in casual attire; mood is described as good ; eye contact appropriate; Speech is normal rate, volume and not pressured; thought process is organized; Thought content is on discharge; denies SI/HI/VH/AH. DS: Summary Hospital Course Hospital Course: 44 yo male, to ER via ambulance with sx of increasing paranoia and fear that he will be shot and killed in the community. Pt telling family for the past few weeks that he is going to and threatened to hang himself at home. Pt met with tw in the kitchen. He refused to meet in the conference room as- we are near the roof and I am afraid of windows- we may be assassinated. Reports that sx just kicked in and he put himself on lock down. Reports being afraid and references several conspiracy theories. Fears being on the unit as it feels like usp, fears he will get shanked, hit with a razor, or harmed, my brain can really twist things . Calls himself a narcissist, with a superman complex who fears everything. Admit, CV, 15 minute checks, TDN filed. Collateral Contact Diagnostics as needed Encourage full milieu Pt is willing to take medications. Olanzapine 5 mg bid to begin. Less frightened, retracted TDN. Continue regime Active on unit, social with peers. patient reports feeling good today; denies any issues at this time. showered. denies SI/HI/VH/AH. denies any side effects from medications. continue current tx plan. Zyprexa increased to 5mg PO daily and 10mg PO bedtime. feeling positive about effects of olanzapine on his thoughts. constipation has become a problem. start colace 100 BID and miralax 17 gm daily PRN. continue current olanzapine orders. Active on unit. Patient reports feeling better today; pt stated, I feel like the increase in medication helped. I slept great last night . pt reports he is not having intrusive thoughts today. denies SI/HI/VH/AH. Pt reports he would like to start discussing discharge with social services counselor and [employer]W. social services counselor aware. Patient reports feeling good ; pt stated, I'm doing well. I'm not having any anxiety and I'm sleeping well . Plan to discharge home on Monday if continues to do well. denies SI/HI/VH/AH. Pt continues to report feeling good; denies SI/HI/VH/AH. Plans on following up with his outpatient providers. Status at Discharge Cognitive/behavioral status at discharge: Patient has insight and demonstrates good judgment in terms of wanting to pursue treatment. Patient has a safety plan that includes presenting to the closest ER or calling 911 if feeling unsafe. Functional status at discharge: independent ambulation Overall status at discharge: patient is back to baseline Time Spent with Patient Time attestation: Total time managing care of this patient today _20___ minutes. Time spent: Less than 30 minutes Discharge Plan Discharge Anticipated Discharge Date/Time: 12/30/24 11:00 Patient Disposition: Home, Self-Care Discharge Diagnosis: MDD with psychotic features, PTSD Referrals: [facility] Partial Hospitalization Program [Other] - 1 Week (You can self refer to this program as well as ask questions about the program by calling the above number. This program is an out patient program and runs five days a week, M-F 9:00 - 2:30 and is group oriented. ) Lorin Hill MD [Primary Care Provider] - 1 Week Discharge Medications: New olanzapine 10 mg Tablet 10 mg PO BEDTIME 30 Days Qty: 30 0RF olanzapine 5 mg Tablet 5 mg PO DAILY 30 Days Qty: 30 0RF Continued atorvastatin 80 mg tablet 80 mg PO DAILY metoprolol succinate 25 mg tablet extended release 24 hr 25 mg PO DAILY aspirin 81 mg tablet,chewable 1 tab PO DAILY Discharge Orders: Discharge Order (Routine); Ordered 12/30/24 Ordered By: Sasha Parks Diet: Regular diet Activity on Discharge: As tolerated Stand Alone Forms: Patient Portal Discharge page, Community Support Print Language: Macedonian Care Plan Goals: Maintain mood and safe behaviors Take medications as prescribed Practice coping skills Continue with outpatient providers and reach out to them as needed Health Concerns: Mood stability and behaviors Plan of Treatment: Follow up with your PCP, psychiatric provider and other outpatient providers regarding above concerns Take medications as prescribed Assessment: Patient has insight and demonstrates good judgment in terms of wanting to pursue treatment. Patient has a safety plan that includes presenting to the closest ER or calling 911 if feeling unsafe. Discharge Date/Time: 12/30/24 11:20
== END 2024-12-30 11:20 | disposition home or self-care (01) | DRG 751 ==
LOC: HO.ED 18:24 → HO.PM5 18:33
PROVIDERS: Admitting Provider Psychiatry & Neurology Psychiatry; Emergency Provider Emergency Medicine; PCP Internal Medicine; Visit Provider Clinical Nurse Specialist Psychiatric/Mental Health, Adult
DX: F32.3 Major depressive disorder, single episode, severe with psychotic features (principal); R45.851 Suicidal ideations; F17.210 Nicotine dependence, cigarettes, uncomplicated; Z71.6 Tobacco abuse counseling; F43.10 Post-traumatic stress disorder, unspecified; I25.118 Atherosclerotic heart disease of native coronary artery with other forms of angina pectoris; Z95.5 Presence of coronary angioplasty implant and graft; Z79.82 Long term (current) use of aspirin; Z79.899 Other long term (current) drug therapy; Z87.820 Personal history of traumatic brain injury
CPT/HCPCS: 36415; 80053; 80061; 80307; 81001; 83036; 84443; 85025; 99285; S9485

== ENCOUNTER → 2024-12-18 18:08 | Outpatient (BNV) | payer OTHER, SELFPAY | PROVIDERS: Admitting Provider Psychiatry & Neurology Psychiatry; Emergency Provider Emergency Medicine; PCP Internal Medicine; Visit Provider Clinical Nurse Specialist Psychiatric/Mental Health, Adult | DX: F23 Brief psychotic disorder (principal); F43.11 Post-traumatic stress disorder, acute | CPT/HCPCS: 99231; 99232 ==